=== PATIENT | male | born 1935 | race Caucasian/White ===

== ENCOUNTER 2017-01-02 12:28 | Inpatient (IN) | payer MEDICARE, BC ==
[2017-01-02] MEDS ORDERED: Sodium Chloride 0.9% 1,000 ML IV ONE (12:50)
--- NOTE | 2017-01-02 12:58 | EDM.PDOC ---
ED HISTORY OF PRESENT ILLNESS - General Chief Complaint: Respiratory Problem Stated Complaint: HEART ATTACK OR PNEUMONIA Time Seen by Provider: 01/02/17 12:48 Source of Information: Reports: Patient History Limitations: Reports: Respiratory distress - History of Present Illness INITIAL COMMENTS - FREE TEXT/NARRATIVE: This 81 yo male patient reports to the ED not feeling well. The patient reports increased shortness of breath, chest pain, and not feeling well. The patient reports he was on his "last leg", so he decided to come into the ED. The patient reports he took some Tylenol this morning. The patient does not know when his symptoms started and was very vague when answering questions. The patient reports his shortness of breath may have started 2-3 days ago. The patient reports he used some Andrey's on his chest today. Symptom Onset Date: 12/30/16 Timing/Duration: Reports: Constant, Getting worse Severity: severe Location, General: Reports: chest, generalized Quality: Reports: Ache, Dull Improves with: Reports: None Worsens with: Reports: None Associated Symptoms (General): Reports: confusion, shortness of breath, weakness Treatments TIP BANDER: Reports: Acetaminophen - Related Data Allergies/ADRs: Allergies Allergy/AdvReac Type Severity Reaction Status Date / Time ibuprofen [From Advil] Allergy Hives Verified 03/07/16 23:53 levofloxacin [From Levaquin] Allergy Rash Verified 03/07/16 23:53 naproxen sodium [From Aleve] Allergy Hives Verified 03/07/16 23:53 Home Meds: Home Meds Aspirin [Adult Low Dose Aspirin EC] 81 mg PO BEDTIME 12/17/13 [History] Dutasteride [Avodart] 0.5 mg PO DAILY 12/17/13 [History] Fluticasone/Salmeterol [Advair 250-50 Diskus] 1 puff INH BID 12/17/13 [History] Montelukast [Singulair] 10 mg PO DAILY 12/17/13 [History] Simvastatin [Zocor] 20 mg PO ACBED 12/17/13 [History] Tolterodine Tartrate [Tolterodine Tartrate ER] 4 mg PO DAILY 12/17/13 [History] Albuterol [Proair HFA] 1 - 2 puff IH ASDIRECTED PRN 10/15/14 [History] Doxazosin [Cardura] 1 tab PO BEDTIME 10/15/14 [History] Sildenafil [Viagra] 1 tab PO ASDIRECTED PRN 10/15/14 [History] Past Medical History HEENT History: Reports: Impaired vision Other HEENT History: wears glasses for reading Cardiovascular History: Reports: None Respiratory History: Reports: COPD Gastrointestinal History: Reports: None Genitourinary History: Reports: None Musculoskeletal History: Reports: Arthritis Neurological History: Reports: None Psychiatric History: Reports: None Endocrine/Metabolic History: Reports: None Hematologic History: Reports: None Immunologic History: Reports: None Oncologic (Cancer) History: Reports: None Dermatologic History: Reports: None - Past Surgical History GI Surgical History: Reports: None Social & Family History - Tobacco Use Smoking Status *Q: Former Smoker Years of Tobacco use: 10 Used Tobacco, but Quit: Yes Month Tobacco Last Used: 45yrs ago Second Hand Smoke Exposure: No - Alcohol Use Days Per Week of Alcohol Use: 0 - Recreational Drug Use Recreational Drug Use: No - Living Situation & Occupation Occupation: retired ED ROS GENERAL - Review of Systems Review Of Systems: ROS reveals no pertinent complaints other than HPI. ED EXAM, GENERAL - Physical Exam Exam: See Below Exam Limited By: No limitations General Appearance: alert, WD/WN, severe distress, thin Eye Exam: bilateral eye: EOMI, normal inspection, PERRL Ears: normal external exam, normal canal, hearing grossly normal, normal TMs Nose: normal inspection, normal mucosa, no blood Throat/Mouth: Normal inspection, Normal lips, Normal teeth, Normal gums, Normal oropharynx, Normal voice, No airway compromise Head: atraumatic, normocephalic Neck: normal inspection, supple, non-tender, full range of motion Respiratory/Chest: no respiratory distress, lungs clear, normal breath sounds, no accessory muscle use, chest non-tender Cardiovascular: normal peripheral pulses, no edema, no gallop, no JVD, no murmur , no rub, tachycardia GI/Abdominal: normal bowel sounds, soft, non tender, no organomegaly, no distention, no abnormal bruit, no mass (Male) Exam: Deferred Rectal (Males) Exam: Deferred Back Exam: normal inspection, full range of motion, NT Extremities: normal inspection, normal range of motion, non-tender, normal capillary refill, no pedal edema Neurological: alert, CN II-XII intact, confused Psychiatric: normal affect, normal mood Skin Exam: Warm, Dry, Intact, Normal color, No rash Lymphatic: no adenopathy Course - Vital Signs Last Recorded V/S: Last Vital Signs Temp 37.8 C 01/02/17 15:11 Pulse 86 01/02/17 15:11 Resp 22 H 01/02/17 15:11 BP 119/65 01/02/17 15:11 Pulse Ox 94 L 01/02/17 15:11 - Orders/Labs/Meds Orders: Active Orders 24 hr Category Date Time Status EKG Documentation Completion [RC] URGENT Care 01/02/17 12:31 Active Azithromycin [Zithromax] 500 mg Med 01/02/17 15:22 Ordered Sodium Chloride 0.9% [Normal Saline] 250 ml IV ONETIME Sodium Chloride 0.9% [Normal Saline] 1,000 ml Med 01/02/17 12:50 Active IV .BOLUS cefTRIAXone [Rocephin] 1 gm Med 01/02/17 15:22 Ordered Sodium Chloride 0.9% [Normal Saline] 50 ml IV ONETIME Medication Orders Sodium Chloride (Normal Saline) 1,000 mls @ 125 mls/hr IV .BOLUS ONE Stop: 01/02/17 20:49 Last Admin: 01/02/17 13:34 Dose: 125 mls/hr Labs: Laboratory Tests 01/02/17 01/02/17 01/02/17 Range/Units 12:45 12:45 12:45 WBC 9.5 (5.0-10.0) 10^3/uL RBC 4.86 (4.6-6.2) 10^6/uL Hgb 14.9 (14.0-18.0) g/dL Hct 43.3 (40.0-54.0) % MCV 89.1 (80-100) fL MCH 30.7 (27.0-34.0) pg MCHC 34.4 (33.0-35.0) g/dL Plt Count 125 L (150-450) 10^3/uL Neut % (Auto) 85.4 H (42.2-75.2) % Lymph % (Auto) 10.6 L (20.5-50.1) % Swain % (Auto) 4.0 (2-8) % Eos % (Auto) 0.0 L (1.0-3.0) % Baso % (Auto) 0.0 (0.0-1.0) % D-Dimer, Quantitative 1660 H (0-400) ng/mL Sodium 133 L (135-145) mmol/L Potassium 3.6 (3.6-5.0) mmol/L Chloride 102 (101-111) mmol/L Carbon Dioxide 26.0 (21.0-31.0) mmol/L Anion Gap 8.6 BUN 28 H (7-18) mg/dL Creatinine 1.0 (0.6-1.3) mg/dL Est Cr Clr Drug Dosing TNP Estimated GFR (MDRD) > 60 BUN/Creatinine Ratio 28.00 Glucose 158 H (74-105) mg/dL Calcium 8.2 L (8.4-10.2) mg/dl Total Bilirubin 1.1 H (0.2-1.0) mg/dL AST 26 (10-42) IU/L ALT 19 (10-60) IU/L Alkaline Phosphatase 62 (42-121) IU/L Troponin I 0.02 (0.00-0.02) ng/ml Total Protein 6.7 (6.7-8.2) g/dl Albumin 3.7 (3.2-5.5) g/dl Globulin 3.0 Albumin/Globulin Ratio 1.23 Meds: Medications Generic Name Dose Route Start Last Admin Trade Name Freq PRN Reason Stop Dose Admin Sodium Chloride 1,000 mls @ 125 mls/hr 01/02/17 12:50 01/02/17 13:34 Normal Saline IV 01/02/17 20:49 125 mls/hr .BOLUS ONE Administration Discontinued Medications Generic Name Dose Route Start Last Admin Trade Name Freq PRN Reason Stop Dose Admin Iopamidol 100 ml 01/02/17 14:17 Isovue-370 (76%) IVPUSH 01/02/17 14:18 ONETIME ONE Departure - Departure Time of Disposition: 15:24 Disposition: Admitted As Inpatient 68 Condition: fair Clinical Impression: Aspiration pneumonia Qualifiers: Aspiration pneumonia type: unspecified Laterality: right Lung location: lower lobe of lung Qualified Code(s): J69.0 - Pneumonitis due to inhalation of food and vomit Forms: ED Department Discharge Care Plan Goals: Discussed the history, examination, lab, EKG, x-ray and CT results with Dr. London. Dr. London accepted the patient for continued evaluation and further management. An order was placed for Rocephin and Azithromycin IV prior to transport. - My Orders Last 24 Hours: My Active Orders 01/02/17 12:31 EKG Documentation Completion [RC] URGENT 01/02/17 12:50 Sodium Chloride 0.9% [Normal Saline] 1,000 ml IV .BOLUS 01/02/17 15:22 Azithromycin [Zithromax] 500 mg Sodium Chloride 0.9% [Normal Saline] 250 ml IV ONETIME cefTRIAXone [Rocephin] 1 gm Sodium Chloride 0.9% [Normal Saline] 50 ml IV ONETIME - Assessment/Plan Last 24 Hours: My Active Orders 01/02/17 12:31 EKG Documentation Completion [RC] URGENT 01/02/17 12:50 Sodium Chloride 0.9% [Normal Saline] 1,000 ml IV .BOLUS 01/02/17 15:22 Azithromycin [Zithromax] 500 mg Sodium Chloride 0.9% [Normal Saline] 250 ml IV ONETIME cefTRIAXone [Rocephin] 1 gm Sodium Chloride 0.9% [Normal Saline] 50 ml IV ONETIME
[2017-01-02 13:12] LABS: CHLORIDE,CL 102 mmol/L (101-111); SODIUM,NA 133 mmol/L (135-145)
--- NOTE | 2017-01-02 13:15 | CR ---
CLINICAL HISTORY: 81-year-old male with shortness of breath. INTERPRETATION: Abnormal AP chest. Apparent large hiatus hernia incarcerated in the lower middle mediastinum (distal thoracic aortic an eurysm is a differential consideration and close clinical correlation requested). Asymmetric pneumonic like consolidation (infiltrate/atelectasis) right lung base. No sign of lung mass, hilar lymphadenopathy or other focal lobar consolidation. No pneumothorax or free subdiaphragmatic air. CONCLUSION: Probable hiatus hernia. Abnormal process right lung base new since 2014 exam.
[2017-01-02] MEDS ORDERED: Iopamidol 755 Mg/ML 100 ML Bottle IVPUSH ONE (14:17)
--- NOTE | 2017-01-02 15:18 | CT ---
CLINICAL HISTORY: 81-year-old 165 pound hypertensive male with shortness of breath, decreased oxygen saturation, abnormally elevated serum D dimer (greater than 1600) and patchy consolidation right odilon ng on recent chest film. Rule out pulmonary embolism/infarct. SCAN TECHNIQUE: Volume acquisition of data from an emergency unenhanced CT scan of the chest obtaine d during the intravenous administration 75 cc nonionic Isovue 370 with the patient lying supine on t Siemens multislice CT scanner [place], [place]. All data archived in the PAC system for storage, reformatting and study. INTERPRETATION: Abnormal. 1. Asymmetric dense alveolar consolidation involving right upper, with middle and right lower lobes. 2. Huge hiatus hernia (aspiration pneumonia?). 3. Normal cardiac silhouette without cephalization of vascular flow or alveolar edema. No pleural ef fusions. 4. No parenchymal lung nodule or mass lesion and no hilar or mediastinal lymphadenopathy. 5. No intraluminal filling defect or thrombus identified in the pulmonary artery circulation. No per ipheral pleural-based, wedge-shaped infarcts. No focal lobar oligemia. No dependent effusion. 6. Calcifications normal caliber thoracic aorta. No aneurysm or dissection. 7. 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 Large hiatus hernia. No pulmonary embolism.
[2017-01-02] MEDS ORDERED: Azithromycin 500 MG in Sodium Chloride 0.9% 250 ML IV ONE (15:22)
[2017-01-02] MEDS ORDERED: cefTRIAXone 1 GM in Sodium Chloride 0.9% 50 ML IV ONE (15:22)
[2017-01-02] MEDS ORDERED: Albuterol 0.083% 2.5 MG/3 ML Neb Soln NEB PRN (16:15)
[2017-01-02] MEDS ORDERED: Acetaminophen 325 MG Tab PO PRN (16:29)
[2017-01-02] MEDS ORDERED: Ondansetron 4 MG Tab.DIS PO PRN (16:29)
[2017-01-02] MEDS ORDERED: Zolpidem 5 MG Tab PO PRN (16:29)
[2017-01-02] MEDS ORDERED: Docusate Sodium 100 MG Cap PO PRN (16:29)
[2017-01-02] MEDS ORDERED: Sodium Chloride 0.9% 1,000 ML IV SCH (16:30)
--- NOTE | 2017-01-02 16:37 | PCM.HP ---
H&P History of Present Illness - General Date of Service: 01/02/17 Admit Problem/Dx: Admission Diagnosis/Problem Admission Diagnosis/Problem Pneumonia Source of Information: Patient - History of Present Illness Initial Comments - Free Text/Narative: 81-year-old gentleman with a history of COPD The patient developed nausea and small amount of vomiting overnight Today he was increasingly short of breath, lightheaded Shortness of breath was worse with activity, better with rest on presentation in the emergency room the shortness of breath was associated with hypoxemia The patient had low-grade fever in the ER The patient has a history of COPD but did not use her rescue inhaler today The patient had no significant chest pain but was complaining of back pain had mild abdominal pain but it was mostly nausea and small amount of vomiting the day before admission the patient was active working with cattle Normal apparent sick contact - Related Data Allergies/Adverse Reactions: Allergies Allergy/AdvReac Type Severity Reaction Status Date / Time ibuprofen [From Advil] Allergy Hives Verified 01/02/17 16:09 levofloxacin [From Levaquin] Allergy Rash Verified 01/02/17 16:09 naproxen sodium [From Aleve] Allergy Hives Verified 01/02/17 16:09 Home Medications: Home Meds Aspirin [Adult Low Dose Aspirin EC] 81 mg PO BEDTIME 12/17/13 [History] Dutasteride [Avodart] 0.5 mg PO DAILY 12/17/13 [History] Fluticasone/Salmeterol [Advair 250-50 Diskus] 1 puff INH BID 12/17/13 [History] Montelukast [Singulair] 10 mg PO DAILY 12/17/13 [History] Simvastatin [Zocor] 20 mg PO ACBED 12/17/13 [History] Tolterodine Tartrate [Tolterodine Tartrate ER] 4 mg PO DAILY 12/17/13 [History] Albuterol [Proair HFA] 1 - 2 puff IH ASDIRECTED PRN 10/15/14 [History] Doxazosin [Cardura] 1 tab PO BEDTIME 10/15/14 [History] Past Medical History HEENT History: Reports: Impaired vision Other HEENT History: wears glasses for reading Cardiovascular History: Reports: None Respiratory History: Reports: COPD Gastrointestinal History: Reports: None Genitourinary History: Reports: BPH Musculoskeletal History: Reports: Arthritis Neurological History: Reports: None Psychiatric History: Reports: None Endocrine/Metabolic History: Reports: None. Denies: Diabetes, type I, Diabetes , type II Hematologic History: Reports: None Immunologic History: Reports: None Oncologic (Cancer) History: Reports: None Dermatologic History: Reports: None - Past Surgical History GI Surgical History: Reports: Hernia repair/other (hiatal hernia) Social & Family History - Tobacco Use Smoking Status *Q: Former Smoker Years of Tobacco use: 10 Used Tobacco, but Quit: Yes Month Tobacco Last Used: 45yrs ago Second Hand Smoke Exposure: No - Caffeine Use Caffeine Use: Reports: Coffee, Tea - Alcohol Use Days Per Week of Alcohol Use: 0 - Recreational Drug Use Recreational Drug Use: No - Living Situation & Occupation Occupation: retired H&P Review of Systems - Review of Systems: Review Of Systems: See Below General: Reports: fever (in the emergency room) Pulmonary: Reports: Shortness of Breath Cardiovascular: Denies: chest pain, edema Gastrointestinal: Reports: Abdominal pain, Nausea. Denies: Constipation, Diarrhea Psychiatric: Reports: confusion (on presentation to the emergency room) Exam - Exam Exam: See Below - Vital Signs Vital Signs: Last Vital Signs Temp 37.9 C 01/02/17 16:04 Pulse 84 01/02/17 16:04 Resp 20 01/02/17 16:04 BP 109/59 L 01/02/17 16:04 Pulse Ox 96 01/02/17 16:04 Weight: 81.647 kg - Exam Quality Assessment: supplemental oxygen General: alert, oriented Neck: supple, trachea midline Lungs: Decreased breath sounds, Wheezing (mild) Cardiovascular: regular rate, regular rhythm Abdomen: normal bowel sounds, soft Back Exam: normal inspection, full range of motion, NT Extremities: normal inspection. No: edema Skin: warm, dry, intact Neuro Extensive - Mental Status: alert, oriented x3, normal mood/affect, normal cognition Psychiatric: alert, normal affect, normal mood - Patient Data Result Diagrams: 01/02/17 12:45 01/02/17 12:45 Imaging Impressions last 24 hrs: chest x-ray per my reading shows right-sided diffuse opacity *Q Meaningful Use (ADM) - VTE *Q VTE Criteria *Q: - Stroke *Q Stroke Criteria *Q: - AMI *Q AMI Criteria *Q: - Problem List (1) Community acquired pneumonia SNOMED Code(s): 189468536 ICD Code: J18.9 - PNEUMONIA, UNSPECIFIED ORGANISM Status: Acute Priority : High Current Visit: Yes (2) COPD exacerbation SNOMED Code(s): 498192488, 237903335 ICD Code: J44.1 - CHRONIC OBSTRUCTIVE PULMONARY DISEASE W (ACUTE) EXACERBATION Status: Acute Priority: Medium Current Visit: Yes (3) Acute hypoxemic respiratory failure SNOMED Code(s): 397360099 ICD Code: J96.01 - ACUTE RESPIRATORY FAILURE WITH HYPOXIA Status: Acute Current Visit: Yes Problem List Initiated/Reviewed/Updated: Yes Orders Last 24hrs: Active Orders 24 hr Category Date Time Status Patient Status [ADT] Routine ADT 01/02/17 16:29 Ordered Antiembolic Devices [RC] PER UNIT ROUTINE Care 01/02/17 16:31 Ordered Oxygen Therapy [RC] PRN Care 01/02/17 16:29 Ordered RT Aerosol Therapy [RC] ASDIRECTED Care 01/02/17 16:14 Ordered RT Aerosol Therapy [RC] ASDIRECTED Care 01/02/17 16:15 Ordered Up With Assistance [RC] ASDIRECTED Care 01/02/17 16:29 Ordered VTE/DVT Education [RC] PER UNIT ROUTINE Care 01/02/17 16:29 Ordered Vital Signs [RC] Q4H Care 01/02/17 16:29 Ordered Regular Diet [DIET] Diet 01/02/17 Dinner Ordered BASIC METABOLIC PANEL,BMP [CHEM] AM Lab 01/03/17 05:15 Ordered CBC WITH AUTO DIFF [HEME] AM Lab 01/03/17 05:15 Ordered CULTURE BLOOD [BC] Stat Lab 01/02/17 16:11 Ordered CULTURE BLOOD [BC] Stat Lab 01/02/17 16:11 Ordered CULTURE SPUTUM + SMEAR [RM] Routine Lab 01/02/17 16:11 Uncollected INFLUENZA A+B AG SCREEN [RM] Routine Lab 01/02/17 16:12 Uncollected TROPONIN I [CHEM] AM Lab 01/03/17 05:11 Ordered Acetaminophen [Tylenol] Med 01/02/17 16:29 Ordered 650 mg PO Q4H PRN Albuterol [Proventil Neb Soln] Med 01/02/17 16:15 Ordered 2.5 mg NEB Q2H PRN Albuterol/Ipratropium [DuoNeb 3.0-0.5 MG/3 ML] Med 01/02/17 23:00 Ordered 3 ml NEB Q8HRRT Aspirin [Halfprin] Med 01/02/17 21:00 Ordered 81 mg PO BEDTIME Azithromycin [Zithromax] 500 mg Med 01/03/17 16:15 Ordered Sodium Chloride 0.9% [Normal Saline] 250 ml IV Q24H Budesonide [Pulmicort] Med 01/02/17 18:00 Ordered 0.5 mg NEB BIDRT Docusate Sodium [Colace] Med 01/02/17 16:29 Ordered 100 mg PO BID PRN Doxazosin [Cardura] Med 01/02/17 21:00 Ordered 1 tab PO BEDTIME Dutasteride [Avodart] Med 01/03/17 09:00 Ordered 0.5 mg PO DAILY Heparin Sodium Med 01/02/17 22:00 Ordered 5,000 units SUBCUT Q8HR Montelukast [Singulair] Med 01/03/17 09:00 Ordered 10 mg PO DAILY Ondansetron [Zofran ODT] Med 01/02/17 16:29 Ordered 4 mg PO Q6H PRN Simvastatin [Zocor] Med 01/02/17 16:30 Ordered 20 mg PO ACBED Sodium Chloride 0.9% @ 75 MLS/HR(1000ml) Med 01/02/17 16:30 Ordered Sodium Chloride 0.9% [Normal Saline] 1,000 ml IV ASDIRECTED Tolterodine Tartrate [Tolterodine Tartrate ER] Med 01/03/17 09:00 Ordered 4 mg PO DAILY Zolpidem [Ambien] Med 01/02/17 16:29 Ordered 5 mg PO BEDTIME PRN cefTRIAXone [Rocephin] 1 gm Med 01/03/17 16:15 Ordered Sodium Chloride 0.9% [Normal Saline] 50 ml IV Q24H methylPREDNISolone Sod Succ [Solu-MEDROL] Med 01/02/17 16:15 Ordered 40 mg IVPUSH Q8H metroNIDAZOLE/Normal Saline [Flagyl 500 MG in NS 100 ML Med 01/02/17 16:15 Ordered ] 500 mg Premix Bag 100 bag IV Q8H Antiembolic Hose [OM.PC] Per Unit Routine Oth 01/02/17 16:30 Ordered Blood Culture x2 Reflex Set [OM.PC] Stat Oth 01/02/17 16:11 Ordered Resuscitation Status Routine Resus Stat 01/02/17 16:29 Ordered Medication Orders Albuterol (Proventil Neb Soln) 2.5 mg NEB Q2H PRN PRN Reason: sob Albuterol/Ipratropium (Duoneb 3.0-0.5 Mg/3 Ml) 3 ml NEB Q8HRRT [facility] Aspirin (Halfprin) 81 mg PO BEDTIME [facility] Budesonide (Pulmicort) 0.5 mg NEB BIDRT [facility] Doxazosin Mesylate (Cardura) 8 mg PO BEDTIME [facility] Dutasteride (Avodart) 0.5 mg PO DAILY [facility] Azithromycin 500 mg/ Sodium (Chloride) 250 mls @ 250 mls/hr IV Q24H [facility] Ceftriaxone Sodium 1 gm/ (Sodium Chloride) 50 mls @ 100 mls/hr IV Q24H [facility] Metronidazole 500 mg/ Premix 100 mls @ 100 mls/hr IV Q8HR [facility] Sodium Chloride (Normal Saline) 1,000 mls @ 75 mls/hr IV ASDIRECTED [facility] Methylprednisolone Sodium Succinate (Solu-Medrol) 40 mg IVPUSH Q8HR [facility] Montelukast Sodium (Singulair) 10 mg PO DAILY [facility] Non-Formulary Medication (Simvastatin [Zocor]) 20 mg PO ACBED [facility] Non-Formulary Medication (Tolterodine Tartrate [Tolterodine Tartrate Er]) 4 mg PO DAILY [facility] Assessment/Plan Comment:: acute hypoxemic respiratory failure Likely due to underlying COPD and pneumonia We'll supplement oxygen as needed Monitor for need Acute community-acquired pneumonia Possible aspiration pneumonia Obtain blood culture, sputum culture, influenza swab I do not think that the patient has significant sepsis on admission The patient has been started with azithromycin and Rocephin in the emergency room, will continue with this Add metronidazole for possible aspiration component Acute exacerbation of COPD Treat with Solu-Medrol, Pulmicort, scheduled DuoNeb Continue Singulair Use as needed albuterol for shortness of breath No apparent ischemic heart disease Repeat troponin in the morning Continue aspirin Prostate hypertrophy Continue home medications DVT prophylaxis will be with subcutaneous heparin Discussed with the ER provider
[2017-01-02] MEDS: methylPREDNISolone Sodium Succinate 40 MG/1 ML SDV IVPUSH SCH ×2 (16:46→21:49)
[2017-01-02] MEDS: Budesonide 0.5 MG/2 ML Neb Susp NEB SCH (19:15)
[2017-01-02] MEDS: metroNIDAZOLE/Normal Saline 500 MG in Premix Bag 100 BAG IV SCH ×2 (19:17→23:33)
[2017-01-02] MEDS: Doxazosin 2 MG Tab PO SCH (21:44)
[2017-01-02] MEDS: Simvastatin 10 MG Tab PO SCH (21:46)
[2017-01-02] MEDS: Aspirin 81 MG Tab.EC PO SCH (21:46)
[2017-01-02] MEDS: Heparin Sodium 5,000 Units/ML Vial SUBCUT SCH (21:52)
[2017-01-02] MEDS: Albuterol/Ipratropium 3.0-0.5 MG/3 ML Neb Soln NEB SCH (23:33)
[2017-01-03] MEDS: Heparin Sodium 5,000 Units/ML Vial SUBCUT SCH ×3 (06:19→21:32)
[2017-01-03] MEDS: methylPREDNISolone Sodium Succinate 40 MG/1 ML SDV IVPUSH SCH ×3 (06:19→21:32)
[2017-01-03] MEDS: metroNIDAZOLE/Normal Saline 500 MG in Premix Bag 100 BAG IV SCH ×3 (06:19→21:31)
[2017-01-03 06:54] LABS: CHLORIDE,CL 107 mmol/L (101-111); SODIUM,NA 137 mmol/L (135-145)
[2017-01-03] MEDS: Albuterol/Ipratropium 3.0-0.5 MG/3 ML Neb Soln NEB SCH ×3 (07:06→22:55)
[2017-01-03] MEDS: Budesonide 0.5 MG/2 ML Neb Susp NEB SCH ×2 (07:06→16:30)
[2017-01-03] MEDS: Montelukast 10 MG Tab PO SCH (08:28)
[2017-01-03] MEDS: Dutasteride 0.5 MG Cap PO SCH (08:28)
[2017-01-03] MEDS: Tolterodine 2 MG Cap.ER PO SCH (08:28)
[2017-01-03] MEDS ORDERED: Potassium Chloride 10 MEQ Tab.ER PO ONE (09:56)
--- NOTE | 2017-01-03 10:02 | PCM.PN ---
- General Info Date of Service: 01/03/17 Admission Dx/Problem (Free Text): Admission Diagnosis/Problem Admission Diagnosis/Problem Pneumonia Subjective Update: feeling better, Shortness of breath that started prior to admission had significantly improved He is not short of breath at rest, but has been on oxygen since admission No associated chest pain, nausea and vomiting seems resolved - Review of Systems General: Reports: Weakness. Denies: Fever Pulmonary: Denies: shortness of breath Cardiovascular: Denies: Chest Pain Gastrointestinal: Denies: Abdominal pain - Patient Data Vitals - most recent: Last Vital Signs Temp 36.4 C 01/03/17 07:00 Pulse 93 01/03/17 07:04 Resp 20 01/03/17 07:00 BP 124/74 01/03/17 07:00 Pulse Ox 94 L 01/03/17 07:00 Weight - most recent: 81.647 kg I&O - last 24 hours: Intake & Output 01/02/17 01/03/17 01/03/17 22:59 06:59 14:59 Intake Total 939 860 Balance 939 860 Lab Results last 24 hrs: Laboratory Results - last 24 hr 01/03/17 01/03/17 Range/Units 06:13 06:13 WBC 12.7 H (5.0-10.0) 10^3/uL RBC 4.07 L (4.6-6.2) 10^6/uL Hgb 12.4 L (14.0-18.0) g/dL Hct 37.0 L (40.0-54.0) % MCV 90.9 (80-100) fL MCH 30.5 (27.0-34.0) pg MCHC 33.5 (33.0-35.0) g/dL Plt Count 122 L (150-450) 10^3/uL Neut % (Auto) 93.4 H (42.2-75.2) % Lymph % (Auto) 2.7 L (20.5-50.1) % [place] % (Auto) 3.9 (2-8) % Eos % (Auto) 0.0 L (1.0-3.0) % Baso % (Auto) 0.0 (0.0-1.0) % Sodium 137 (135-145) mmol/L Potassium 3.5 L (3.6-5.0) mmol/L Chloride 107 (101-111) mmol/L Carbon Dioxide 25.0 (21.0-31.0) mmol/L Anion Gap 8.5 BUN 24 H (7-18) mg/dL Creatinine 0.8 (0.6-1.3) mg/dL Est Cr Clr Drug Dosing 72.44 mL/min Estimated GFR (MDRD) > 60 Glucose 157 H (74-105) mg/dL Calcium 7.8 L (8.4-10.2) mg/dl Troponin I < 0.02 (0.00-0.02) ng/ml Filippo Results last 24 hrs: Microbiology 01/02/17 19:00 Gram Stain - Final Sputum - Expectorated 01/02/17 18:36 Influenza Type A Antigen Screen - Final Nasal, Left NEGATIVE INFLUENZA A VIRUS AG Influenza Type B Antigen Screen - Final NEGATIVE INFLUENZA B VIRUS AG Med Orders - Current: Current Medications Acetaminophen (Tylenol) 650 mg PO Q4H PRN PRN Reason: Pain (Mild 1-3)/fever Albuterol (Proventil Neb Soln) 2.5 mg NEB Q2H PRN PRN Reason: sob Albuterol/Ipratropium (Duoneb 3.0-0.5 Mg/3 Ml) 3 ml NEB Q8HRRT [facility] Last Admin: 01/03/17 07:06 Dose: 3 ml Aspirin (Halfprin) 81 mg PO BEDTIME [facility] Last Admin: 01/02/17 21:46 Dose: 81 mg Budesonide (Pulmicort) 0.5 mg NEB BIDRT [facility] Last Admin: 01/03/17 07:06 Dose: 0.5 mg Docusate Sodium (Colace) 100 mg PO BID PRN PRN Reason: Constipation Doxazosin Mesylate (Cardura) 8 mg PO BEDTIME [facility] Last Admin: 01/02/17 21:44 Dose: 8 mg Dutasteride (Avodart) 0.5 mg PO DAILY [facility] Last Admin: 01/03/17 08:28 Dose: 0.5 mg Heparin Sodium (Porcine) (Heparin Sodium) 5,000 units SUBCUT Q8HR [facility] Last Admin: 01/03/17 06:19 Dose: 5,000 units Azithromycin 500 mg/ Sodium (Chloride) 250 mls @ 250 mls/hr IV Q24H [facility] Ceftriaxone Sodium 1 gm/ (Sodium Chloride) 50 mls @ 100 mls/hr IV Q24H [facility] Metronidazole 500 mg/ Premix 100 mls @ 100 mls/hr IV Q8HR [facility] Last Admin: 01/03/17 06:19 Dose: 100 mls/hr Sodium Chloride (Normal Saline) 1,000 mls @ 75 mls/hr IV ASDIRECTED [facility] Last Admin: 01/02/17 16:39 Dose: 75 mls/hr Methylprednisolone Sodium Succinate (Solu-Medrol) 40 mg IVPUSH Q8HR [facility] Last Admin: 01/03/17 06:19 Dose: 40 mg Montelukast Sodium (Singulair) 10 mg PO DAILY [facility] Last Admin: 01/03/17 08:28 Dose: 10 mg Ondansetron HCl (Zofran Odt) 4 mg PO Q6H PRN PRN Reason: nausea, able to take PO Potassium Chloride (Klor-Con 10) 20 meq PO ONETIME ONE Stop: 01/03/17 09:57 Simvastatin (Zocor) 20 mg PO BEDTIME [facility] Last Admin: 01/02/17 21:46 Dose: 20 mg Tolterodine Tartrate (Detrol La 24 Hr) 4 mg PO DAILY [facility] Last Admin: 01/03/17 08:28 Dose: 4 mg Zolpidem Tartrate (Ambien) 5 mg PO BEDTIME PRN PRN Reason: Sleep Discontinued Medications Sodium Chloride (Normal Saline) 1,000 mls @ 125 mls/hr IV .BOLUS ONE Stop: 01/02/17 20:49 Last Infusion: 01/02/17 16:04 Dose: 125 mls/hr Azithromycin 500 mg/ Sodium (Chloride) 250 mls @ 250 mls/hr IV ONETIME ONE Stop: 01/02/17 16:21 Last Admin: 01/02/17 16:48 Dose: 250 mls/hr Ceftriaxone Sodium 1 gm/ (Sodium Chloride) 50 mls @ 100 mls/hr IV ONETIME ONE Stop: 01/02/17 15:51 Last Admin: 01/02/17 15:30 Dose: 100 mls/hr Iopamidol (Isovue-370 (76%)) 100 ml IVPUSH ONETIME ONE Stop: 01/02/17 14:18 Last Admin: 01/02/17 14:17 Dose: 100 ml - Exam Quality Assessment: supplemental oxygen General: alert, oriented Neck: supple Lungs: Rhonchi (right-sided) Cardiovascular: Regular Rate, Regular Rhythm Abdomen: bowel sounds present, soft, no tenderness, no distension Back Exam: normal inspection, full range of motion Extremities: no edema Skin: warm, dry, intact Neurological: no new focal deficit Psy/Mental Status: alert, normal affect, normal mood - Problem List & Annotations (1) Community acquired pneumonia SNOMED Code(s): 173628305 Code(s): J18.9 - PNEUMONIA, UNSPECIFIED ORGANISM Status: Acute Priority: High Current Visit: Yes (2) COPD exacerbation SNOMED Code(s): 447270752, 531822362 Code(s): J44.1 - CHRONIC OBSTRUCTIVE PULMONARY DISEASE W (ACUTE) EXACERBATION Status: Acute Priority: Medium Current Visit: Yes (3) Acute hypoxemic respiratory failure SNOMED Code(s): 144472325 Code(s): J96.01 - ACUTE RESPIRATORY FAILURE WITH HYPOXIA Status: Acute Current Visit: Yes - Problem List Review Problem List Initiated/Reviewed/Updated: Yes - My Orders Last 24 Hours: My Active Orders 01/03/17 09:56 Potassium Chloride [Klor-Con 10] 20 meq PO ONETIME ONE - Plan Plan:: acute hypoxemic respiratory failure Likely due to underlying COPD and pneumonia We'll supplement oxygen as needed Monitor for oxygen need Acute community-acquired pneumonia Possible aspiration pneumonia blood culture: pending Sputum culture: pending Treat with azithromycin and Rocephin Added metronidazole for possible aspiration component Acute exacerbation of COPD Treat with Solu-Medrol, Pulmicort, scheduled DuoNeb Continue Singulair Use as needed albuterol for shortness of breath leukocytosis likely relates to the steroids Prostate hypertrophy Continue home medications blood sugars were noted Likely glucose intolerance exacerbated by the steroids Recheck fasting sugar in the morning DVT prophylaxis will be with subcutaneous heparin
[2017-01-03] MEDS: cefTRIAXone 1 GM in Sodium Chloride 0.9% 50 ML IV SCH (15:21)
[2017-01-03] MEDS: Azithromycin 500 MG in Sodium Chloride 0.9% 250 ML IV SCH (15:55)
--- NOTE | 2017-01-03 16:09 | EKG ---
01/02/2017 - JANINE BEARD - EKG per my reading shows sinus rhythm at a rate of 117 with right bundle-branch block. [facility] /[id number]
[2017-01-03] MEDS: Doxazosin 2 MG Tab PO SCH (21:29)
[2017-01-03] MEDS: Aspirin 81 MG Tab.EC PO SCH (21:30)
[2017-01-03] MEDS: Simvastatin 10 MG Tab PO SCH (21:30)
[2017-01-04] MEDS: Heparin Sodium 5,000 Units/ML Vial SUBCUT SCH ×3 (05:51→21:33)
[2017-01-04] MEDS: metroNIDAZOLE/Normal Saline 500 MG in Premix Bag 100 BAG IV SCH ×2 (05:52→15:20)
[2017-01-04] MEDS: methylPREDNISolone Sodium Succinate 40 MG/1 ML SDV IVPUSH SCH (05:52)
[2017-01-04 06:46] LABS: CHLORIDE,CL 107 mmol/L (101-111); SODIUM,NA 137 mmol/L (135-145)
[2017-01-04] MEDS: Budesonide 0.5 MG/2 ML Neb Susp NEB SCH ×2 (07:23→16:23)
[2017-01-04] MEDS: Albuterol/Ipratropium 3.0-0.5 MG/3 ML Neb Soln NEB SCH ×3 (07:23→22:42)
[2017-01-04] MEDS: Montelukast 10 MG Tab PO SCH (09:47)
[2017-01-04] MEDS: Tolterodine 2 MG Cap.ER PO SCH (09:47)
[2017-01-04] MEDS: Dutasteride 0.5 MG Cap PO SCH (09:47)
--- NOTE | 2017-01-04 13:03 | PN ---
DATE: 01/04/2017 HISTORY OF PRESENT ILLNESS: Mr. Jam Fuentes is a 81-year-old male with a medical history significant for chronic obstructive pulmonary disease, hypertension, hyperlipidemia, was admitted to the hospital with complaints of increasing shortness of breath and was noted to be in acute hypoxic respiratory failure, acute COPD exacerbation, and with pneumonia. For the past 24 hours, the patient continues to have mild shortness of breath, aggravated on exertion, relieved with rest, requiring supplemental oxygen, getting hypoxic on room air. He was saturating down to 80% on room air. Denies any chest pains. No abdominal pain. No nausea. No vomiting. No diarrhea. REVIEW OF SYSTEMS: Cardiovascular, respiratory, gastrointestinal, neurology, constitutional were all evaluated. PHYSICAL EXAMINATION: Vital Signs: Temperature of 98.4, pulse of 84, blood pressure 116/68, respiratory rate of 18, saturating at 92% on 1.5 L of oxygen. General Appearance: The patient is well oriented to time, place, and person. Follows commands spontaneously. Cardiovascular: S1, S2 heard with normal intensity. No gallops. Respiratory: Clear to auscultation bilaterally. No wheeze. Mild crepitations at the bases. Abdomen: Soft. Bowel sounds positive. Nontender. No rigidity. Extremities: No edema in bilateral lower extremities. Skin: No acute rash noted. Psychiatry: Normal mood. MEDICATIONS: 1. Tylenol 650 mg every 4 hours as needed. 2. Albuterol 2.5 nebulizer every 2 hours as needed. 3. DuoNeb 3 mL nebulizer every 8 hours. 4. Aspirin 81 mg daily. 5. Zithromax 250 IV daily. 6. Pulmicort 0.5 mg nebulizer twice daily. 7. Ceftriaxone daily. 8. Docusate sodium 100 mg twice a day. 9. Cardura 8 mg at bedtime. 10.Avodart 0.5 mg daily. 11.Heparin 5000 subcutaneous q.8 hourly. 12.Methylprednisolone 40 mg IV q.8 hourly. 13.Metronidazole IV q.8 hourly. 14.Montelukast 10 mg daily. 15.Zofran 4 mg every 6 hours as needed for nausea. 16.Zocor 20 mg daily. 17.Detrol 4 mg daily. 18.Ambien 5 mg at bedtime as needed. LABORATORY DATA: WBC 12.2, hemoglobin 12.1, hematocrit 35.9, platelet count 130. Sodium 137, potassium 3.8, chloride 107, bicarb 24, BUN 28, creatinine 0.9. Glucose 133. Troponin 0.02. ASSESSMENT: 1. Acute chronic obstructive pulmonary disease exacerbation. 2. Acute hypoxic respiratory failure. 3. Pneumonia. PLAN: 1. Acute COPD exacerbation. The patient's COPD seems to be improving on current regimen with DuoNeb and Pulmicort nebulizer and IV methylprednisone. We will gradually taper to oral prednisone at this time. Closely monitor. 2. Acute hypoxic respiratory failure. The patient continues to be hypoxic on room air. He saturating down to 80% to 85% on room air. He is requiring 1.5 L of oxygen. We will hold the discharge today. We will have him on incentive spirometer, flutter valve. We will continue with the nebulizer treatments and antibiotics, and titrate down the prednisone. We will see how he does in the next 24 hours. If he still continues to require oxygen, then he might benefit from home oxygen. 3. Pneumonia. This seems to be community-acquired pneumonia. He is currently on IV antibiotics, continue the same. So far, his cultures remain negative. 4. DVT prophylaxis. Continue with heparin 5000 subcutaneous q.8 hourly for DVT prophylaxis. 5. Possible discharge in a.m. 6. Discussed with Dr. London regarding the plan of care. [facility] /[id number]
[2017-01-04] MEDS: Sodium Chloride 0.9% 10 ML Syringe FLUSH PRN ×3 (15:20→22:38)
[2017-01-04] MEDS: cefTRIAXone 1 GM in Sodium Chloride 0.9% 50 ML IV SCH (16:23)
[2017-01-04] MEDS: Azithromycin 500 MG in Sodium Chloride 0.9% 250 ML IV SCH (16:54)
[2017-01-04] MEDS: Doxazosin 2 MG Tab PO SCH (21:29)
[2017-01-04] MEDS: Aspirin 81 MG Tab.EC PO SCH (21:31)
[2017-01-04] MEDS: Simvastatin 10 MG Tab PO SCH (21:32)
[2017-01-04] MEDS: metroNIDAZOLE/Normal Saline 500 MG in Premix Bag 1 BAG IV SCH (21:34)
[2017-01-05] MEDS: metroNIDAZOLE/Normal Saline 500 MG in Premix Bag 1 BAG IV SCH ×2 (05:19→13:07)
[2017-01-05] MEDS: Heparin Sodium 5,000 Units/ML Vial SUBCUT SCH ×2 (05:20→13:07)
[2017-01-05] MEDS: Albuterol/Ipratropium 3.0-0.5 MG/3 ML Neb Soln NEB SCH (07:41)
[2017-01-05] MEDS: Budesonide 0.5 MG/2 ML Neb Susp NEB SCH (07:41)
[2017-01-05] MEDS ORDERED: predniSONE 20 MG Tab PO SCH (08:00)
[2017-01-05] MEDS: Dutasteride 0.5 MG Cap PO SCH (08:52)
[2017-01-05] MEDS: Montelukast 10 MG Tab PO SCH (08:53)
[2017-01-05] MEDS: Tolterodine 2 MG Cap.ER PO SCH (08:53)
[2017-01-05 10:13] VITALS: BP 129/73
--- NOTE | 2017-01-06 04:23 | DISCH ---
ADMITTING DIAGNOSES: 1. Acute chronic obstructive pulmonary disease exacerbation. 2. Acute hypoxic respiratory failure. 3. Community-acquired pneumonia. DISCHARGE DIAGNOSES: 1. Pneumonia, treated well with IV antibiotics, changed to oral antibiotic at the time of discharge. 2. Acute hypoxic respiratory failure, resolved. The patient is able to saturate well on room air between 93% to 95%. 3. Acute chronic obstructive pulmonary exacerbation, resolved. 4. History of benign prostatic hypertrophy. HISTORY OF PRESENTING ILLNESS: Mr. Jam Fuentes is a 81-year-old male with medical history significant for chronic obstructive pulmonary disease, who was admitted to the hospital with increasing shortness of breath and was noted to be in COPD exacerbation, acute hypoxic respiratory failure, requiring oxygen, and was noted to have COPD exacerbation. The patient was admitted and was started on nebulizer treatment, IV methylprednisone, antibiotics, after which his symptoms got resolved. The patient was encouraged to use incentive spirometer and flutter valve for better pulmonary toileting on this admission. He remained hemodynamically stable. He is able to saturate well on room air at the time of discharge. He is discharged home in stable condition. He is advised to follow with his primary care physician in next 1 week of time. DISCHARGE MEDICATIONS: Include; 1. Albuterol 2 puffs inhalation every 6 hours as needed for wheezing. 2. Aspirin 81 mg daily. 3. Zithromax 500 mg daily for next 5 days. 4. Doxazosin 8 mg at bedtime. 5. Avodart 0.5 mg daily. 6. Advair inhalation twice a day, magnesium 2-4 tablets oral 4 times daily as needed for hard bone. 7. Gaviscon. 8. Montelukast 10 mg at bedtime. 9. Prednisone tapered dose 20 mg 3 days, 10 mg 3 days, and then 5 mg for 3 days. 10.Simvastatin 20 mg at bedtime. 11.Tolterodine tartrate 4 mg daily. PHYSICAL EXAMINATION: Vital Signs: On the day of discharge vitals; temperature of 97.8, pulse of 86, blood pressure 129/73, respiratory rate of 18, and saturating at 93% on room air. General Appearance: The patient is well oriented to time, place, and person. Follows commands spontaneously. Cardiovascular System: S1 and S2 are heard with normal intensity. No gallops. Respiratory: Clear to auscultation bilaterally. No wheeze. No crepitations. Abdomen: Soft. Bowel sounds positive. Nontender. No rigidity. Extremities: No edema in bilateral lower extremities. Neurologic: No gross focal neurological deficits. CONDITION ON ADMISSION: Poor. CONDITION ON DISCHARGE: Stable. ACTIVITY: As tolerated. DIET: Cardiac healthy diet. FOLLOWUP: With primary care physician in next 1 week of time. [facility] /[id number]
== END 2017-01-05 14:34 | disposition home or self-care (01) | DRG 189 ==
LOC: DL.ED 12:28 → UNDOADMIN 15:38 → DL.MS 15:38
PROVIDERS: ADMIT Internal Medicine; ATTEND Internal Medicine
DX: J69.0 Pneumonitis due to inhalation of food and vomit (principal); J44.9 Chronic obstructive pulmonary disease, unspecified; J96.01 Acute respiratory failure with hypoxia; J18.9 Pneumonia, unspecified organism; J44.0 Chronic obstructive pulmonary disease with (acute) lower respiratory infection; J44.1 Chronic obstructive pulmonary disease with (acute) exacerbation; Z87.891 Personal history of nicotine dependence; N40.0 Benign prostatic hyperplasia without lower urinary tract symptoms; Z79.899 Other long term (current) drug therapy; Z88.1 Allergy status to other antibiotic agents; Z88.6 Allergy status to analgesic agent; I10 Essential (primary) hypertension; E78.5 Hyperlipidemia, unspecified; Z79.82 Long term (current) use of aspirin; M19.90 Unspecified osteoarthritis, unspecified site
CPT/HCPCS: 36415; 71010; 71260; 80053; 84484; 85025; 85379; 87040 ×2; 93005; 93010; 99285 ×2; J0696; J7030; J7050; Q9967 ×2; 80048; 87070; 87205; 87804; 94640; 94667; A9270-GY; J0456; J1644; J2920

== ENCOUNTER 2018-01-07 06:06 | Day surgery (SDC) | payer MEDICARE, BC ==
[~2018-01-07 06:06] MED LIST: Dextrose 5%-0.45% NaCl 1,000 ML IV SCH; Sodium Chloride 0.9% 10 ML Syringe FLUSH PRN
[2018-01-07] MEDS ORDERED: Midazolam 1 MG/ML 2 ML SDV IV ONE ×2 (06:07→07:08)
[2018-01-07] MEDS ORDERED: fentaNYL 100 MCG/2 ML SDV IV ONE ×3 (06:07→07:07)
[2018-01-07] MEDS ORDERED: Midazolam 1 MG/ML 2 ML SDV ONE (06:15)
[2018-01-07] MEDS ORDERED: fentaNYL 100 MCG/2 ML SDV ONE (06:16)
--- NOTE | 2018-01-07 08:20 | OR ---
DATE: 01/07/2018 PROCEDURE PERFORMED: Esophagogastroduodenoscopy and multiple pinch biopsies. INSTRUMENT USED: GIF-Q180 Olympus video panendoscope. PREMEDICATIONS: No oral topical anesthesia used. Fentanyl 100 mcg intravenous and Versed 1 mg intravenous. Nasal O2 cannula. The procedure was done under pulse oximetry, BP recording, and environmental monitoring specialist. INDICATION: The patient with previous hiatal hernia surgery with longstanding heartburn, persistent in nature, unexplained, and not responsive to medical measures, on PPI. Esophagogastroduodenoscopy is performed for detection of any active erosive lesions, malignancy and/or Dowell's esophagus also under consideration, H. pylori status to be determined, endoscopic hemostasis therapy if needed. DESCRIPTION OF PROCEDURE: The scope was passed with ease. Adequate visualization of the esophagus was made from proximal to distal areas. No upper esophageal lesions identified. No distal esophageal stricture. No uphill or downhill esophageal varices. No Alda-Felix tear. No evidence of erosive esophagitis by [place] criteria. No esophageal polyp or tumor mass identified. Z-line was seen at around 39 cm distal to the oral verge. Surgical deformity was noted related to previous hiatal hernia surgery. No proximal gastric varices noted. Gastric fundus examination by retroflexion showed no malignant lesions. No gastric ulcer, malignant mass, or vascular ectasia identified. Duodenal bulb showed no ulcer. Visualized second part of the duodenum was unremarkable. Multiple pinch biopsies were taken from the gastric antrum and proximal body and sent for PyloriTek test for H. pylori, and if negative in an hour, tissue was to be sent for histopathology. No bleeding was noted from any of the visualized areas at the completion of examination. IMPRESSION: Status post hiatal hernia surgery. The patient tolerated the procedure well. [facility] /[id number]
[2018-01-07 09:39] VITALS: BP 144/74
== END 2018-01-07 09:23 | disposition home or self-care (01) ==
LOC: DL.ENDO 06:06
PROVIDERS: ATTEND Internal Medicine Gastroenterology
DX: K31.89 Other diseases of stomach and duodenum (principal); R12 Heartburn; I10 Essential (primary) hypertension; J44.9 Chronic obstructive pulmonary disease, unspecified; Z88.1 Allergy status to other antibiotic agents; Z88.8 Allergy status to other drugs, medicaments and biological substances
CPT/HCPCS: 43239; 87077; J7042; 88305; J2250; J3010

== ENCOUNTER 2018-03-30 21:03 | Emergency (ER) | payer MEDICARE, BC ==
[2018-03-30 21:08] VITALS: BP 150/101
[2018-03-30] MEDS ORDERED: Clindamycin HCl 150 MG Cap PO ONE (21:11)
--- NOTE | 2018-03-30 21:17 | EDM.PDOC ---
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 - Related Data Allergies Allergy/AdvReac Type Severity Reaction Status Date / Time ibuprofen [From Advil] Allergy Hives Verified 01/07/18 06:21 levofloxacin [From Levaquin] Allergy Rash Verified 01/07/18 06:21 naproxen sodium [From Aleve] Allergy Hives Verified 01/07/18 06:21 Home Meds: Home Meds Aspirin [Adult Low Dose Aspirin EC] 81 mg PO BEDTIME 12/17/13 [History] Dutasteride [Avodart] 0.5 mg PO DAILY 12/17/13 [History] Fluticasone/Salmeterol [Advair 250-50] 1 puff INH BID 12/17/13 [History] Montelukast [Singulair] 10 mg PO BEDTIME 12/17/13 [History] Simvastatin [Zocor] 20 mg PO BEDTIME 12/17/13 [History] Tolterodine Tartrate [Tolterodine Tartrate ER] 4 mg PO DAILY 12/17/13 [History] Doxazosin [Cardura] 8 mg PO BEDTIME 10/15/14 [History] Albuterol [Ventolin HFA] 2 puff INH BID PRN 01/02/17 [History] Pantoprazole [ProTONIX] 40 mg PO DAILY 01/03/18 [History] predniSONE 20 mg PO BID 01/03/18 [History] Azithromycin [Zithromax] 1 tab PO ASDIRECTED 01/07/18 [History] Doxycycline [Vibramycin] 100 mg PO BID 01/07/18 [History] Past Medical History HEENT History: Reports: Impaired Vision, Other (See Below) Other HEENT History: wears glasses for reading. UPPER DENTURE PLATE Cardiovascular History: Reports: None Other Cardiovascular History: ABDOMINAL AORTIC ANEURYSM Respiratory History: Reports: COPD, SOB, Other (See Below) Other Respiratory History: HX OF 'SPOT' ON LUNG, FOUND ON CT SCAN 11/2017 Gastrointestinal History: Reports: None Other Gastrointestinal History: S/P COLONIC TUBULAR ADENOMA Genitourinary History: Reports: BPH Musculoskeletal History: Reports: Arthritis Neurological History: Reports: None Psychiatric History: Reports: None Other Psychiatric History: S/P TOBACCO HABITUATION Endocrine/Metabolic History: Reports: None Hematologic History: Reports: None Immunologic History: Reports: None Oncologic (Cancer) History: Reports: None Dermatologic History: Reports: None - Infectious Disease History Infectious Disease History: Reports: None - Past Surgical History GI Surgical History: Reports: Hernia Repair/Other Social & Family History - Family History Family Medical History: Noncontributory - Caffeine Use Caffeine Use: Reports: Coffee, Tea Caffeine Use Comment: 16. OZ - Living Situation & Occupation Occupation: Retired ED ROS GENERAL - Review of Systems Review Of Systems: ROS reveals no pertinent complaints other than HPI. ED EXAM, SKIN/RASH Exam: See Below Exam Limited By: No Limitations General Appearance: Alert, WD/WN, No Apparent Distress Ears: Hearing Grossly Normal Throat/Mouth: Normal Voice, No Airway Compromise Head: Atraumatic Neck: Non-Tender, Full Range of Motion Respiratory/Chest: No Respiratory Distress Cardiovascular: Regular Rate, Rhythm GI/Abdominal: Soft, Non-Tender Extremities: Other (left arm spfl skin tears without active bleeding, normal ROM , NV nwl,) Neurological: Alert, Oriented, Normal Cognition, Normal Gait, No Motor/Sensory Deficits Psychiatric: Normal Affect, Normal Mood Skin: Warm, Dry, Normal Color Location, Skin: Upper Extremity, Left Lymphatic: No Adenopathy Course - Vital Signs Last Recorded V/S: Last Vital Signs Temp 37.1 C 03/30/18 21:07 Pulse 82 03/30/18 21:07 Resp 16 03/30/18 21:07 BP 150/101 H 03/30/18 21:07 Pulse Ox 95 03/30/18 21:07 - Orders/Labs/Meds Meds: Medications Discontinued Medications Generic Name Dose Route Start Last Admin Trade Name Freq PRN Reason Stop Dose Admin Clindamycin HCl 300 mg 03/30/18 21:11 03/30/18 21:17 Cleocin PO 03/30/18 21:12 300 mg ONETIME ONE Administration Departure - Departure Time of Disposition: 21:20 Disposition: Home, Self-Care 01 Condition: Good Clinical Impression: Skin tear - Discharge Information Instructions: Skin Tear Care, [id number] Referrals: [place],Ash Lorri, [employer] [Primary Care Provider] - Forms: ED Department Discharge Additional Instructions: 1) keep wound clean dry covered 2) recheck if looks infected rx given; clindamycin 150mg qid x 40
== END 2018-03-30 21:20 | disposition home or self-care (01) ==
LOC: DL.ED 21:03
DX: S41.112A Laceration without foreign body of left upper arm, initial encounter (principal); Z88.6 Allergy status to analgesic agent; Z88.1 Allergy status to other antibiotic agents; Z79.82 Long term (current) use of aspirin; Z79.899 Other long term (current) drug therapy; W01.0XXA Fall on same level from slipping, tripping and stumbling without subsequent striking against object, initial encounter; Y92.79 Other farm location as the place of occurrence of the external cause; Y99.0 Civilian activity done for income or pay
CPT/HCPCS: 99282; 99283; A9270

== ENCOUNTER 2020-07-16 17:54 | Observation (INO) | payer MEDICARE, BC ==
[2020-07-16] MEDS ORDERED: Ondansetron 4 MG/2 ML SDV IVPUSH PRN (19:29)
[2020-07-16] MEDS ORDERED: Zolpidem 5 MG Tab PO PRN (19:29)
[2020-07-16] MEDS ORDERED: Albuterol 6.7 GM Inhaler INH PRN ×2 (19:34)
--- NOTE | 2020-07-16 19:37 | PCM.HP ---
H&P History of Present Illness - General Date of Service: 07/16/20 Admit Problem/Dx: Admission Diagnosis/Problem Admission Diagnosis/Problem Abnormal electrocardiogram Source of Information: Patient History Limitations: Reports: No Limitations - History of Present Illness Initial Comments - Free Text/Narative: Patient is an 85 year-old male with a medical history of dyslipidemia, COPD, BPH, HTN, AAA, GERD who presented from clinic with complains of cough and shortness of breath. Patient reports that he was in his usual state of health until yesterday when he developed a dry cough and shortness of breath with activity. He started to feel generalized weakness today and decided to present to clinic. Vital signs were stable, labs showed potassium of 3.4, however, EKG showed RBBB, LAFB and questionable ST depressions. Troponin was negative. Patient was referred for observation. However, upon presentation here, he was tested for COVID-19 and found positive. He denies fever or chest pain. CXR had no acute findings. - Related Data Allergies/Adverse Reactions: Allergies Allergy/AdvReac Type Severity Reaction Status Date / Time ibuprofen [From Advil] Allergy Hives Verified 01/07/18 06:21 levofloxacin [From Levaquin] Allergy Rash Verified 01/07/18 06:21 naproxen sodium [From Aleve] Allergy Hives Verified 01/07/18 06:21 Home Medications: Home Meds Aspirin [Adult Low Dose Aspirin EC] 81 mg PO BEDTIME 12/17/13 [History] Dutasteride [Avodart] 0.5 mg PO DAILY 12/17/13 [History] Fluticasone/Salmeterol [Advair 250-50] 1 puff INH BID 12/17/13 [History] Montelukast [Singulair] 10 mg PO BEDTIME 12/17/13 [History] Simvastatin [Zocor] 20 mg PO BEDTIME 12/17/13 [History] Doxazosin [Cardura] 8 mg PO BEDTIME 10/15/14 [History] Albuterol [Ventolin HFA] 2 puff INH Q6H PRN 01/02/17 [History] Pantoprazole [ProTONIX] 40 mg PO BID 01/03/18 [History] Albuterol [Take Home: Albuterol 18 GM, 1 INH Pack] 1 puff INH QID PRN 07/16/20 [History] Mirabegron [Myrbetriq] 25 mg PO DAILY 07/16/20 [History] Potassium Chloride 20 meq PO DAILY 07/16/20 [History] hydroCHLOROthiazide [Hydrochlorothiazide] 25 mg PO DAILY 07/16/20 [History] Past Medical History HEENT History: Reports: Impaired Vision, Other (See Below) Other HEENT History: wears glasses for reading. UPPER DENTURE PLATE Cardiovascular History: Reports: None Other Cardiovascular History: ABDOMINAL AORTIC ANEURYSM Respiratory History: Reports: COPD, SOB, Other (See Below) Other Respiratory History: HX OF 'SPOT' ON LUNG, FOUND ON CT SCAN 11/2017 Gastrointestinal History: Reports: None Other Gastrointestinal History: S/P COLONIC TUBULAR ADENOMA Genitourinary History: Reports: BPH Musculoskeletal History: Reports: Arthritis Neurological History: Reports: None Psychiatric History: Reports: None Other Psychiatric History: S/P TOBACCO HABITUATION Endocrine/Metabolic History: Reports: None Hematologic History: Reports: None Immunologic History: Reports: None Oncologic (Cancer) History: Reports: None Dermatologic History: Reports: None - Infectious Disease History Infectious Disease History: Reports: None - Past Surgical History GI Surgical History: Reports: Hernia Repair/Other Social & Family History - Family History Family Medical History: Noncontributory - Caffeine Use Caffeine Use: Reports: Coffee, Tea Caffeine Use Comment: 16. OZ - Living Situation & Occupation Occupation: Retired H&P Review of Systems - Review of Systems: Review Of Systems: See Below General: Reports: Weakness HEENT: Reports: No Symptoms Pulmonary: Reports: Shortness of Breath, Cough Cardiovascular: Reports: No Symptoms Gastrointestinal: Reports: No Symptoms Genitourinary: Reports: No Symptoms Musculoskeletal: Reports: No Symptoms Skin: Reports: No Symptoms Psychiatric: Reports: No Symptoms Neurological: Reports: No Symptoms Hematologic/Lymphatic: Reports: No Symptoms Immunologic: Reports: No Symptoms Exam - Exam Exam: See Below - Exam General: Alert HEENT: PERRLA, Hearing Intact, Mucosa Moist & [place], Nares Patent, Normal Nasal Septum, Posterior Pharynx Clear, Conjunctiva Clear, EOMI, EACs Clear, TMs Clear Neck: Supple, Trachea Midline, 2 Lungs: Clear to Auscultation, Normal Respiratory Effort Cardiovascular: Regular Rate, Regular Rhythm GI/Abdominal Exam: Normal Bowel Sounds, Soft, Non-Tender, No Organomegaly, No Distention, No Abnormal Bruit, No Mass, Pelvis Stable Back Exam: Normal Inspection, Full Range of Motion, NT Extremities: Normal Inspection, Normal Range of Motion, Non-Tender, No Pedal Edema, Normal Capillary Refill Skin: Warm, Dry, Intact Neurological: Cranial Nerves Intact, Reflexes Equal Bilateral Neuro Extensive - Mental Status: Alert, Oriented x3, Normal Mood/Affect, Normal Cognition Neuro Extensive - Motor, Sensory, Reflexes: CN II-XII Intact, Normal Gait, Normal Reflexes Psychiatric: Alert, Normal Affect, Normal Mood - Patient Data Lab Results Last 24 hrs: Laboratory Results - last 24 hr 07/16/20 Range/Units 18:15 SARS CoV-2 RNA Rapid NISH Positive H (NEGATIVE) Problem List Initiated/Reviewed/Updated: Yes Orders Last 24hrs: Active Orders 24 hr Category Date Time Status Patient Status [ADT] Routine ADT 07/16/20 18:05 Active Antiembolic Devices [RC] PER UNIT ROUTINE Care 07/16/20 19:34 Ordered Cardiac Monitoring [RC] CONTINUOUS Care 07/16/20 19:29 Ordered Incentive Spirometry [RT Incentive Spirometry] [RC] Care 07/16/20 19:36 Ordered Q1HWA Oxygen Therapy [RC] PRN Care 07/16/20 19:29 Ordered RT Post Treatment Assessment [RC] Click to Edit Care 07/16/20 19:35 Ordered RT Pre-Treatment Assessment [RC] Click to Edit Care 07/16/20 19:35 Ordered Up ad Aditi [RC] ASDIRECTED Care 07/16/20 19:29 Ordered VTE/DVT Education [RC] PER UNIT ROUTINE Care 07/16/20 19:29 Ordered Vital Signs [RC] Q4H Care 07/16/20 19:29 Ordered Regular Diet [DIET] Diet 07/16/20 Breakfast Ordered Acetaminophen [TylenoL] Med 07/16/20 19:29 Ordered 650 mg PO Q4H PRN Albuterol [Proventil HFA] Med 07/16/20 19:34 Ordered 1 puff INH QID PRN Albuterol [Proventil HFA] Med 07/16/20 19:34 Ordered 2 puff INH Q6H PRN Aspirin [Halfprin] Med 07/16/20 21:00 Ordered 81 mg PO BEDTIME Doxazosin [Cardura] Med 07/16/20 21:00 Ordered 8 mg PO BEDTIME Dutasteride [Avodart] Med 07/17/20 09:00 Ordered 0.5 mg PO DAILY Enoxaparin [Lovenox] Med 07/17/20 09:00 Ordered 40 mg SUBCUT DAILY Fluticasone/Salmeterol Med 07/16/20 21:00 Ordered 1 puff INH BID Montelukast [Singulair] Med 07/16/20 21:00 Ordered 10 mg PO BEDTIME Ondansetron [Zofran] Med 07/16/20 19:29 Ordered 4 mg IVPUSH Q4H PRN Pantoprazole [ProTONIX] Med 07/16/20 21:00 Ordered 40 mg PO BID Potassium Chloride [Klor-Con 10] Med 07/16/20 19:35 Once 40 meq PO ONETIME ONE Potassium Chloride [Potassium Chloride] Med 07/17/20 09:00 Ordered 20 meq PO DAILY Simvastatin [Zocor] Med 07/16/20 21:00 Ordered 20 mg PO BEDTIME Zolpidem [Ambien] Med 07/16/20 19:29 Ordered 5 mg PO BEDTIME PRN Antiembolic Hose [OM.PC] Per Unit Routine Oth 07/16/20 19:32 Ordered Resuscitation Status Routine Resus Stat 07/16/20 19:29 Ordered Medication Orders Acetaminophen (Tylenol) 650 mg PO Q4H PRN PRN Reason: Pain (Mild 1-3)/fever Albuterol (Proventil Hfa) gm INH QID PRN PRN Reason: Shortness of Breath Albuterol (Proventil Hfa) gm INH Q6H PRN PRN Reason: Wheezing Aspirin (Halfprin) 81 mg PO BEDTIME [facility] Dutasteride (Avodart) 0.5 mg PO DAILY [facility] Enoxaparin Sodium (Lovenox) 40 mg SUBCUT DAILY [facility] Montelukast Sodium (Singulair) 10 mg PO BEDTIME [facility] Non-Formulary Medication (Doxazosin [Cardura]) 8 mg PO BEDTIME [facility] Non-Formulary Medication (Fluticasone/Salmeterol) 1 puff INH BID [facility] Non-Formulary Medication (Potassium Chloride [Potassium Chloride]) 20 meq PO DAILY [facility] Non-Formulary Medication (Simvastatin [Zocor]) 20 mg PO BEDTIME [facility] Ondansetron HCl (Zofran) 4 mg IVPUSH Q4H PRN PRN Reason: Nausea/Vomiting Pantoprazole Sodium (Protonix) 40 mg PO BID [facility] Potassium Chloride (Klor-Con 10) 40 meq PO ONETIME ONE Stop: 07/16/20 19:36 Zolpidem Tartrate (Ambien) 5 mg PO BEDTIME PRN PRN Reason: Sleep Assessment/Plan Comment:: COVID0-19 associated pneumonia - Start decadron daily - Daily COVID labs - Oxygen as needed Dyslipidemia - Resume home meds COPD - Resume home meds BPH - Resume home meds HTN - Resume home antihypertensives GERD - Resume home PPI
[2020-07-16] MEDS ORDERED: Potassium Chloride 10 MEQ Tab.ER PO ONE (19:50)
[2020-07-16] MEDS: Doxazosin 2 MG Tab PO SCH (21:01)
[2020-07-16] MEDS: Montelukast 10 MG Tab PO SCH (21:04)
[2020-07-16] MEDS: Aspirin 81 MG Tab.EC PO SCH (21:04)
[2020-07-16] MEDS: Simvastatin 10 MG Tab PO SCH (21:04)
[2020-07-16] MEDS: Pantoprazole 40 MG Tab.CR PO SCH (21:04)
[2020-07-16] MEDS: Acetaminophen 325 MG Tab PO PRN (21:04)
[2020-07-16] MEDS: Formoterol/Mometasone 200-5 MCG 8.8 GM Inhaler IH SCH (21:08)
[2020-07-16] MEDS: Dexamethasone 4 MG/ML SDV IVPUSH SCH (22:58)
[2020-07-17] MEDS: Acetaminophen 325 MG Tab PO PRN (06:17)
[2020-07-17 07:11] LABS: ANION GAP 12.9 mEq/L (7-13); CHLORIDE,CL 102 mmol/L (98-107); SODIUM,NA 139 mmol/L (136-145)
[2020-07-17] MEDS ORDERED: Non-Formulary Medication 1 Each (Mirabegron [Myrbetriq] 25 MG) PO SCH (09:00)
[2020-07-17] MEDS: Hydrochlorothiazide 25 MG Tab PO SCH (10:03)
[2020-07-17] MEDS: Pantoprazole 40 MG Tab.CR PO SCH ×2 (10:03→22:31)
[2020-07-17] MEDS: Potassium Chloride 10 MEQ Tab.ER PO SCH (10:04)
[2020-07-17] MEDS: Dutasteride 0.5 MG Cap PO SCH (10:04)
[2020-07-17] MEDS: Formoterol/Mometasone 200-5 MCG 8.8 GM Inhaler IH SCH ×2 (10:06→22:32)
[2020-07-17] MEDS: Dexamethasone 4 MG/ML SDV IVPUSH SCH (10:09)
[2020-07-17] MEDS: cefTRIAXone 1 GM in Sodium Chloride 0.9% 50 ML IV SCH (10:23)
[2020-07-17] MEDS: Enoxaparin 40 MG/0.4 ML Syringe SUBCUT SCH (10:29)
[2020-07-17] MEDS: Azithromycin 500 MG in Sodium Chloride 0.9% 250 ML IV SCH (12:50)
--- NOTE | 2020-07-17 13:40 | PCM.PN ---
- General Info Date of Service: 07/17/20 Admission Dx/Problem (Free Text): Admission Diagnosis/Problem Admission Diagnosis/Problem Abnormal electrocardiogram Subjective Update: Patient seen and examined today. Coughing and short of breath with activity. Occasionally hypoxic and requiring oxygen. Functional Status: Reports: Pain Controlled - Review of Systems General: Reports: No Symptoms HEENT: Reports: No Symptoms Pulmonary: Reports: Shortness of Breath, Cough Cardiovascular: Denies: Chest Pain Gastrointestinal: Reports: No Symptoms Genitourinary: Reports: No Symptoms Musculoskeletal: Reports: No Symptoms Skin: Reports: No Symptoms Neurological: Reports: No Symptoms Psychiatric: Reports: No Symptoms - Patient Data Vitals - Most Recent: Last Vital Signs Temp 99.4 F 07/17/20 08:20 Pulse 63 07/17/20 08:20 Resp 18 07/17/20 08:20 BP 109/61 07/17/20 08:20 Pulse Ox 95 07/17/20 08:20 Weight - Most Recent: 162 lb 6.4 oz I&O - Last 24 Hours: Intake & Output 07/16/20 07/17/20 07/17/20 22:59 06:59 14:59 Intake Total 292 Balance 292 Lab Results Last 24 Hours: Laboratory Results - last 24 hr 07/16/20 07/17/20 07/17/20 Range/Units 18:15 06:05 06:05 WBC 3.5 L (5.0-10.0) 10^3/uL RBC 4.23 L (4.6-6.2) 10^6/uL Hgb 13.1 L (14.0-18.0) g/dL Hct 38.6 L (40.0-54.0) % MCV 91.3 (80-100) fL MCH 31.0 (27.0-34.0) pg MCHC 33.9 (33.0-35.0) g/dL Plt Count 146 L (150-450) 10^3/uL Neut % (Auto) 83.0 H (42.2-75.2) % Lymph % (Auto) 10.8 L (20.5-50.1) % Elbert % (Auto) 6.2 (2-8) % Eos % (Auto) 0.0 L (1.0-3.0) % Baso % (Auto) 0.0 (0.0-1.0) % D-Dimer, Quantitative 680 H (0-400) ng/mL Sodium (136-145) mmol/L Potassium (3.5-5.1) mmol/L Chloride (98-107) mmol/L Carbon Dioxide (21-32) mmol/L Anion Gap (7-13) mEq/L BUN (7-18) mg/dL Creatinine (0.70-1.30) mg/dL Est Cr Clr Drug Dosing mL/min Estimated GFR (MDRD) Glucose (74-99) mg/dL Calcium (8.5-10.1) mg/dL Lactate Dehydrogenase (85-227) U/L Troponin I (0.000-0.056) ng/mL SARS CoV-2 RNA Rapid NISH Positive H (NEGATIVE) 07/17/20 Range/Units 06:05 WBC (5.0-10.0) 10^3/uL RBC (4.6-6.2) 10^6/uL Hgb (14.0-18.0) g/dL Hct (40.0-54.0) % MCV (80-100) fL MCH (27.0-34.0) pg MCHC (33.0-35.0) g/dL Plt Count (150-450) 10^3/uL Neut % (Auto) (42.2-75.2) % Lymph % (Auto) (20.5-50.1) % Elbert % (Auto) (2-8) % Eos % (Auto) (1.0-3.0) % Baso % (Auto) (0.0-1.0) % D-Dimer, Quantitative (0-400) ng/mL Sodium 139 (136-145) mmol/L Potassium 3.9 (3.5-5.1) mmol/L Chloride 102 (98-107) mmol/L Carbon Dioxide 28 (21-32) mmol/L Anion Gap 12.9 (7-13) mEq/L BUN 18 (7-18) mg/dL Creatinine 0.93 (0.70-1.30) mg/dL Est Cr Clr Drug Dosing 58.23 mL/min Estimated GFR (MDRD) > 60 Glucose 111 H (74-99) mg/dL Calcium 8.3 L (8.5-10.1) mg/dL Lactate Dehydrogenase 151 (85-227) U/L Troponin I < 0.017 (0.000-0.056) ng/mL SARS CoV-2 RNA Rapid NISH (NEGATIVE) Med Orders - Current: Current Medications Acetaminophen (Tylenol) 650 mg PO Q4H PRN PRN Reason: Pain (Mild 1-3)/fever Last Admin: 07/17/20 06:17 Dose: 650 mg Documented by: Albuterol (Proventil Hfa) 0 gm INH Q6H PRN PRN Reason: Wheezing Aspirin (Halfprin) 81 mg PO BEDTIME [facility] Last Admin: 07/16/20 21:04 Dose: 81 mg Documented by: Dexamethasone (Dexamethasone) 6 mg IVPUSH DAILY [facility] Stop: 07/25/20 09:01 Last Admin: 07/17/20 10:09 Dose: 6 mg Documented by: Docusate Sodium (Colace) 100 mg PO BID PRN PRN Reason: Constipation Doxazosin Mesylate (Cardura) 8 mg PO BEDTIME [facility] Last Admin: 07/16/20 21:01 Dose: 8 mg Documented by: Dutasteride (Avodart) 0.5 mg PO DAILY [facility] Last Admin: 07/17/20 10:04 Dose: 0.5 mg Documented by: Enoxaparin Sodium (Lovenox) 40 mg SUBCUT DAILY [facility] Last Admin: 07/17/20 10:29 Dose: 40 mg Documented by: Hydrochlorothiazide (Hydrochlorothiazide) 25 mg PO DAILY [facility] Last Admin: 07/17/20 10:03 Dose: 25 mg Documented by: Remdesivir 100 mg/ Sodium (Chloride) 230 mls @ 230 mls/hr IV Q24H [facility] Stop: 07/21/20 09:01 Azithromycin 500 mg/ Sodium (Chloride) 250 mls @ 250 mls/hr IV Q24H [facility] Last Admin: 07/17/20 12:50 Dose: 250 mls/hr Documented by: Ceftriaxone Sodium 1 gm/ (Sodium Chloride) 50 mls @ 100 mls/hr IV Q24H [facility] Last Infusion: 07/17/20 11:14 Dose: Infused Documented by: Mometasone Furoate/Formoterol Fumar (Dulera 200-5 Mcg) 2 puff IH BID [facility] Last Admin: 07/17/20 10:06 Dose: 2 puff Documented by: Montelukast Sodium (Singulair) 10 mg PO BEDTIME [facility] Last Admin: 07/16/20 21:04 Dose: 10 mg Documented by: Non-Formulary Medication (Mirabegron [Myrbetriq]) 25 mg PO DAILY [facility] Non-Formulary Medication (Econazole/Niacinamide [Econazole Nit 1%- Niacinamide4%]) 1 applic TOP BID [facility] Ondansetron HCl (Zofran) 4 mg IVPUSH Q4H PRN PRN Reason: Nausea/Vomiting Pantoprazole Sodium (Protonix) 40 mg PO BID [facility] Last Admin: 07/17/20 10:03 Dose: 40 mg Documented by: Potassium Chloride (Klor-Con 10) 20 meq PO DAILY [facility] Last Admin: 07/17/20 10:04 Dose: 20 meq Documented by: Simvastatin (Zocor) 20 mg PO BEDTIME [facility] Last Admin: 07/16/20 21:04 Dose: 20 mg Documented by: Zolpidem Tartrate (Ambien) 5 mg PO BEDTIME PRN PRN Reason: Sleep Discontinued Medications Albuterol (Proventil Hfa) 0 gm INH QID PRN PRN Reason: Shortness of Breath Remdesivir 200 mg/ Sodium (Chloride) 210 mls @ 210 mls/hr IV ONETIME ONE Stop: 07/17/20 09:19 Last Infusion: 07/17/20 12:50 Dose: Infused Documented by: Potassium Chloride (Klor-Con 10) 40 meq PO ONETIME ONE Stop: 07/16/20 19:51 Last Admin: 07/16/20 21:01 Dose: 40 meq Documented by: - Exam Quality Assessment: Supplemental Oxygen General: Alert, Oriented HEENT: Pupils Equal, Pupils Reactive, EOMI, Mucous Membr. Moist/[place] Neck: Supple Lungs: Clear to Auscultation, Normal Respiratory Effort Cardiovascular: Regular Rate, Regular Rhythm GI/Abdominal Exam: Normal Bowel Sounds, Soft, Non-Tender, No Organomegaly, No Distention, No Abnormal Bruit, No Mass, Pelvis Stable Back Exam: Normal Inspection, Full Range of Motion Extremities: Normal Inspection, Normal Range of Motion, Non-Tender, No Pedal Edema, Normal Capillary Refill Skin: Warm, Dry, Intact Neurological: No New Focal Deficit Psy/Mental Status: Alert, Normal Affect, Normal Mood Sepsis Event Note - Evaluation Sepsis Screening Result: No Definite Risk - Focused Exam Vital Signs: Vital Signs Temp Pulse Resp BP Pulse Ox 07/17/20 08:20 99.4 F 63 18 109/61 95 07/17/20 05:00 98.1 F 66 14 102/56 L 89 L - Problem List Review Problem List Initiated/Reviewed/Updated: Yes - My Orders Last 24 Hours: My Active Orders 07/16/20 18:05 Patient Status [ADT] Routine 07/16/20 19:29 Cardiac Monitoring [RC] Oxygen Therapy [RC] PRN Up ad Aditi [RC] ASDIRECTED VTE/DVT Education [RC] PER UNIT ROUTINE Vital Signs [RC] Q4H Acetaminophen [TylenoL] 650 mg PO Q4H PRN Ondansetron [Zofran] 4 mg IVPUSH Q4H PRN Zolpidem [Ambien] 5 mg PO BEDTIME PRN Resuscitation Status Routine 07/16/20 19:32 Antiembolic Hose [OM.PC] Per Unit Routine 07/16/20 19:34 Antiembolic Devices [RC] Albuterol [Proventil HFA] 0 gm INH Q6H PRN 07/16/20 19:35 RT Post Treatment Assessment [RC] Click to Edit RT Pre-Treatment Assessment [RC] Click to Edit 07/16/20 19:36 Incentive Spirometry [RT Incentive Spirometry] [RC] Q1HWA 07/16/20 21:00 Aspirin [Halfprin] 81 mg PO BEDTIME Doxazosin [Cardura] 8 mg PO BEDTIME Mometasone/Formoterol [Dulera 200-5 MCG] 2 puff IH BID Montelukast [Singulair] 10 mg PO BEDTIME Pantoprazole [ProTONIX] 40 mg PO BID Simvastatin [Zocor] 20 mg PO BEDTIME 07/16/20 21:32 Isolation [COMM] Stat 07/16/20 21:45 dexAMETHasone [Dexamethasone] 6 mg IVPUSH DAILY 07/17/20 06:05 PROCALCITONIN [REF] AM 07/17/20 09:00 Dutasteride [Avodart] 0.5 mg PO DAILY Enoxaparin [Lovenox] 40 mg SUBCUT DAILY Mirabegron [Myrbetriq] 25 mg PO DAILY Potassium Chloride [Klor-Con 10] 20 meq PO DAILY hydroCHLOROthiazide 25 mg PO DAILY 07/17/20 09:18 Blood Culture x2 Reflex Set [OM.PC] Stat 07/17/20 09:19 Nurse Communication: Isolation [RC] ASDIRECTED Isolation [COMM] Stat 07/17/20 09:30 cefTRIAXone [Rocephin] 1 gm Sodium Chloride 0.9% [Normal Saline] 50 ml IV Q24H 07/17/20 10:00 Azithromycin [Zithromax] 500 mg Sodium Chloride 0.9% [Normal Saline (AdvBag)] 250 ml IV Q24H 07/17/20 10:10 CULTURE BLOOD [BC] Stat 07/17/20 10:11 CULTURE BLOOD [BC] Stat 07/17/20 12:29 Docusate Sodium [Colace] 100 mg PO BID PRN 07/17/20 21:00 Econazole/Niacinamide [Econazole Nit 1%-Niacinamide4%] 1 applic TOP BID 07/18/20 05:11 BASIC METABOLIC PANEL,BMP [CHEM] AM CBC WITH AUTO DIFF [HEME] AM D-DIMER QUANTITATIVE [COAG] AM LACTATE DEHYDROGENASE,LDH [CHEM] AM 07/18/20 09:00 Remdesivir (Eua) [Remdesivir (EUA)] 100 mg Sodium Chloride 0.9% [Normal Saline] 230 ml IV Q24H 07/19/20 05:11 D-DIMER QUANTITATIVE [COAG] AM LACTATE DEHYDROGENASE,LDH [CHEM] AM - Plan Plan:: COVID0-19 associated pneumonia Acute hypoxic respiratory failure - Continue decadron daily - Daily COVID labs - Oxygen as needed - Start Remdesevir, Ceftriaxone and Azithromycin Dyslipidemia - Resume home meds COPD - Resume home meds BPH - Resume home meds HTN - Resume home antihypertensives GERD - Resume home PPI
[2020-07-17] MEDS: Docusate Sodium 100 MG Cap PO PRN (14:30)
[2020-07-17] MEDS: Doxazosin 2 MG Tab PO SCH (22:27)
[2020-07-17] MEDS: Aspirin 81 MG Tab.EC PO SCH (22:31)
[2020-07-17] MEDS: Simvastatin 10 MG Tab PO SCH (22:31)
[2020-07-17] MEDS: Montelukast 10 MG Tab PO SCH (22:31)
[2020-07-17] MEDS: Sodium Chloride 0.9% 10 ML Syringe FLUSH PRN (22:39)
[2020-07-18 06:49] LABS: ANION GAP 12.5 mEq/L (7-13); CHLORIDE,CL 104 mmol/L (98-107); SODIUM,NA 142 mmol/L (136-145)
[2020-07-18] MEDS ORDERED: Water For Injection, Sterile 20 ML ONE (09:31)
[2020-07-18] MEDS: Pantoprazole 40 MG Tab.CR PO SCH (09:45)
[2020-07-18] MEDS: Dutasteride 0.5 MG Cap PO SCH (09:45)
[2020-07-18] MEDS: Hydrochlorothiazide 25 MG Tab PO SCH (09:45)
[2020-07-18] MEDS: Formoterol/Mometasone 200-5 MCG 8.8 GM Inhaler IH SCH (09:45)
[2020-07-18] MEDS: Potassium Chloride 10 MEQ Tab.ER PO SCH (09:45)
[2020-07-18] MEDS: Dexamethasone 4 MG/ML SDV IVPUSH SCH (09:45)
[2020-07-18] MEDS: Enoxaparin 40 MG/0.4 ML Syringe SUBCUT SCH (09:46)
[2020-07-18] MEDS: Docusate Sodium 100 MG Cap PO PRN (09:52)
--- NOTE | 2020-07-18 10:35 | PCM.DCSUM1 ---
Discharge Summary - Hospital Course Free Text/Narrative:: Patient is an 85 year-old male with a medical history of dyslipidemia, COPD, BPH, HTN, AAA, GERD who presented from clinic with complains of cough and shortness of breath. Vital signs were stable, labs showed potassium of 3.4, however, EKG was unchanged from prior. Troponin x2 was negative. He had no chest pain. He was tested for COVID-19 and found positive. CXR had no acute findings. During hospitalization he was transiently hypoxic. He received Remdesevir, Dexamethasone and empiric antibiotics for pneumonia. His clinical status improved remarkable and he was discharged. Problems addressed during this hospitalization COVID0-19 associated pneumonia Acute hypoxic respiratory failure Dyslipidemia COPD BPH HTN GERD Diagnosis: Stroke: No - Discharge Data Discharge Date: 07/18/20 Discharge Disposition: Home, Self-Care 01 Condition: Good - Referral to Home Health Primary Care Physician: Ash Quiros, [employer] PATHOLOG[employer] - Discharge Plan *PRESCRIPTION DRUG MONITORING PROGRAM REVIEWED*: Not Applicable *COPY OF PRESCRIPTION DRUG MONITORING REPORT IN PATIENT BISMARK: Not Applicable Prescriptions/Med Rec: dexAMETHasone [Dexamethasone] 6 mg PO DAILY #6 tab Levofloxacin 750 mg PO DAILY 3 Days tablet Rivaroxaban [Xarelto] 10 mg PO DAILY #30 tab Home Medications: Home Meds Aspirin [Adult Low Dose Aspirin EC] 81 mg PO BEDTIME 12/17/13 [History] Dutasteride [Avodart] 0.5 mg PO DAILY 12/17/13 [History] Fluticasone/Salmeterol [Advair 250-50] 1 puff INH BID 12/17/13 [History] Montelukast [Singulair] 10 mg PO BEDTIME 12/17/13 [History] Simvastatin [Zocor] 20 mg PO BEDTIME 12/17/13 [History] Doxazosin [Cardura] 8 mg PO BEDTIME 10/15/14 [History] Albuterol [Ventolin HFA] 2 puff INH Q6H PRN 01/02/17 [History] Pantoprazole [ProTONIX] 40 mg PO BID 01/03/18 [History] Albuterol [Take Home: Albuterol 18 GM, 1 INH Pack] 1 puff INH QID PRN 07/16/20 [History] Mirabegron [Myrbetriq] 25 mg PO DAILY 07/16/20 [History] Potassium Chloride 20 meq PO DAILY 07/16/20 [History] hydroCHLOROthiazide [Hydrochlorothiazide] 25 mg PO DAILY 07/16/20 [History] Econazole/Niacinamide [Econazole Nit 1%-Niacinamide4%] 1 applic TOP BID 07/17/20 [History] Levofloxacin 750 mg PO DAILY 3 Days tablet 07/18/20 [Rx] Rivaroxaban [Xarelto] 10 mg PO DAILY #30 tab 07/18/20 [Rx] dexAMETHasone [Dexamethasone] 6 mg PO DAILY #6 tab 07/18/20 [Rx] Patient Handouts: COVID-19 Frequently Asked Questions, COVID-19, Rivaroxaban oral tablets, COVID-19: How to Protect Yourself and Others - CDC, Infection Prevention in the Home, Levofloxacin tablets, Dexamethasone tablets, Prevent the Spread of COVID-19 if You Are Sick - [facility]– [place] - Discharge Summary/Plan Comment DC Time >30 min.: Yes - General Info Date of Service: 07/18/20 Admission Dx/Problem (Free Text: Admission Diagnosis/Problem Admission Diagnosis/Problem Abnormal electrocardiogram Subjective Update: Patient seen and examined today. Coughing and short of breath is much improved. Afebrile and not requiring oxygen. Functional Status: Reports: Ambulating - Review of Systems General: Reports: No Symptoms HEENT: Reports: No Symptoms Pulmonary: Reports: Cough Cardiovascular: Reports: No Symptoms Gastrointestinal: Reports: No Symptoms Genitourinary: Reports: No Symptoms Musculoskeletal: Reports: No Symptoms Skin: Reports: No Symptoms Neurological: Reports: No Symptoms - Patient Data Vitals - Most Recent: Last Vital Signs Temp 98.7 F 07/18/20 07:00 Pulse 68 07/18/20 07:00 Resp 18 07/18/20 07:00 BP 137/75 07/18/20 07:00 Pulse Ox 96 07/18/20 07:00 Weight - Most Recent: 162 lb 6.4 oz I&O - Last 24 hours: Intake & Output 07/17/20 07/18/20 07/18/20 23:59 06:59 14:59 Intake Total Balance Lab Results - Last 24 hrs: Laboratory Results - last 24 hr 07/18/20 07/18/20 07/18/20 Range/Units 05:55 05:55 05:55 WBC 4.1 L (5.0-10.0) 10^3/uL RBC 4.13 L (4.6-6.2) 10^6/uL Hgb 13.0 L (14.0-18.0) g/dL Hct 37.8 L (40.0-54.0) % MCV 91.5 (80-100) fL MCH 31.5 (27.0-34.0) pg MCHC 34.4 (33.0-35.0) g/dL Plt Count 143 L (150-450) 10^3/uL Neut % (Auto) 68.3 (42.2-75.2) % Lymph % (Auto) 19.6 L (20.5-50.1) % [place] % (Auto) 12.1 H (2-8) % Eos % (Auto) 0.0 L (1.0-3.0) % Baso % (Auto) 0.0 (0.0-1.0) % D-Dimer, Quantitative 730 H (0-400) ng/mL Sodium 142 (136-145) mmol/L Potassium 3.5 (3.5-5.1) mmol/L Chloride 104 (98-107) mmol/L Carbon Dioxide 29 (21-32) mmol/L Anion Gap 12.5 (7-13) mEq/L BUN 23 H (7-18) mg/dL Creatinine 0.94 (0.70-1.30) mg/dL Est Cr Clr Drug Dosing 57.61 mL/min Estimated GFR (MDRD) > 60 Glucose 106 H (74-99) mg/dL Calcium 8.0 L (8.5-10.1) mg/dL Lactate Dehydrogenase 158 (85-227) U/L SUSANA Results - Last 24 hrs: Microbiology 07/17/20 10:10 Aerobic Blood Culture - Preliminary Blood - Arm, Right NO GROWTH AFTER 1 DAY Anaerobic Blood Culture - Preliminary NO GROWTH AFTER 1 DAY 07/17/20 10:11 Aerobic Blood Culture - Preliminary Blood - Arm, Left NO GROWTH AFTER 1 DAY Anaerobic Blood Culture - Preliminary NO GROWTH AFTER 1 DAY Med Orders - Current: Current Medications Acetaminophen (Tylenol) 650 mg PO Q4H PRN PRN Reason: Pain (Mild 1-3)/fever Last Admin: 07/17/20 06:17 Dose: 650 mg Documented by: Albuterol (Proventil Hfa) 0 gm INH Q6H PRN PRN Reason: Wheezing Aspirin (Halfprin) 81 mg PO BEDTIME [facility] Last Admin: 07/17/20 22:31 Dose: 81 mg Documented by: Dexamethasone (Dexamethasone) 6 mg IVPUSH DAILY [facility] Stop: 07/25/20 09:01 Last Admin: 07/18/20 09:45 Dose: 6 mg Documented by: Docusate Sodium (Colace) 100 mg PO BID PRN PRN Reason: Constipation Last Admin: 07/18/20 09:52 Dose: 100 mg Documented by: Doxazosin Mesylate (Cardura) 8 mg PO BEDTIME [facility] Last Admin: 07/17/20 22:27 Dose: 8 mg Documented by: Dutasteride (Avodart) 0.5 mg PO DAILY [facility] Last Admin: 07/18/20 09:45 Dose: 0.5 mg Documented by: Enoxaparin Sodium (Lovenox) 40 mg SUBCUT DAILY [facility] Last Admin: 07/18/20 09:46 Dose: 40 mg Documented by: Hydrochlorothiazide (Hydrochlorothiazide) 25 mg PO DAILY [facility] Last Admin: 07/18/20 09:45 Dose: 25 mg Documented by: Remdesivir 100 mg/ Sodium (Chloride) 230 mls @ 230 mls/hr IV Q24H [facility] Stop: 07/21/20 09:01 Last Admin: 07/18/20 09:49 Dose: 230 mls/hr Documented by: Azithromycin 500 mg/ Sodium (Chloride) 250 mls @ 250 mls/hr IV Q24H [facility] Last Infusion: 07/17/20 14:28 Dose: Infused Documented by: Ceftriaxone Sodium 1 gm/ (Sodium Chloride) 50 mls @ 100 mls/hr IV Q24H [facility] Last Infusion: 07/17/20 11:14 Dose: Infused Documented by: Mometasone Furoate/Formoterol Fumar (Dulera 200-5 Mcg) 2 puff IH BID [facility] Last Admin: 07/18/20 09:45 Dose: 2 puff Documented by: Montelukast Sodium (Singulair) 10 mg PO BEDTIME [facility] Last Admin: 07/17/20 22:31 Dose: 10 mg Documented by: Non-Formulary Medication (Mirabegron [Myrbetriq]) 25 mg PO DAILY [facility] Non-Formulary Medication (Econazole/Niacinamide [Econazole Nit 1%- Niacinamide4%]) 1 applic TOP BID [facility] Ondansetron HCl (Zofran) 4 mg IVPUSH Q4H PRN PRN Reason: Nausea/Vomiting Pantoprazole Sodium (Protonix) 40 mg PO BID [facility] Last Admin: 07/18/20 09:45 Dose: 40 mg Documented by: Potassium Chloride (Klor-Con 10) 20 meq PO DAILY [facility] Last Admin: 07/18/20 09:45 Dose: 20 meq Documented by: Simvastatin (Zocor) 20 mg PO BEDTIME [facility] Last Admin: 07/17/20 22:31 Dose: 20 mg Documented by: Sodium Chloride (Saline Flush) 10 ml FLUSH ASDIRECTED PRN PRN Reason: Keep Vein Open Last Admin: 07/17/20 22:39 Dose: 10 ml Documented by: Zolpidem Tartrate (Ambien) 5 mg PO BEDTIME PRN PRN Reason: Sleep Discontinued Medications Albuterol (Proventil Hfa) 0 gm INH QID PRN PRN Reason: Shortness of Breath Remdesivir 200 mg/ Sodium (Chloride) 210 mls @ 210 mls/hr IV ONETIME ONE Stop: 07/17/20 09:19 Last Infusion: 07/17/20 12:50 Dose: Infused Documented by: Sterile Water (Sterile Water For Injection) Confirm Administered Dose 20 mls @ as directed .ROUTE .STK-MED ONE Stop: 07/18/20 09:32 Last Admin: 07/18/20 10:05 Dose: Not Given Documented by: Potassium Chloride (Klor-Con 10) 40 meq PO ONETIME ONE Stop: 07/16/20 19:51 Last Admin: 07/16/20 21:01 Dose: 40 meq Documented by: - Exam Quality Assessment: Denies: Supplemental Oxygen General: Reports: Alert, Oriented HEENT: Reports: Pupils Equal, Pupils Reactive, EOMI, Mucous Membr. Moist/[place] Neck: Reports: Supple Lungs: Reports: Clear to Auscultation, Normal Respiratory Effort Cardiovascular: Reports: Regular Rate, Regular Rhythm GI/Abdominal Exam: Normal Bowel Sounds, Soft, Non-Tender, No Organomegaly, No Distention, No Abnormal Bruit, No Mass, Pelvis Stable Back Exam: Reports: Normal Inspection, Full Range of Motion Extremities: Normal Inspection, Normal Range of Motion, Non-Tender, No Pedal Edema, Normal Capillary Refill Skin: Reports: Warm, Dry, Intact Neurological: Reports: No New Focal Deficit Psy/Mental Status: Reports: Alert, Normal Affect, Normal Mood
[2020-07-18] MEDS: Sodium Chloride 0.9% 10 ML Syringe FLUSH PRN (11:02)
[2020-07-18] MEDS: cefTRIAXone 1 GM in Sodium Chloride 0.9% 50 ML IV SCH (11:03)
[2020-07-18] MEDS: Azithromycin 500 MG in Sodium Chloride 0.9% 250 ML IV SCH (11:39)
[2020-07-18 11:43] VITALS: BP 156/83; PULSE 56
== END 2020-07-18 13:45 | disposition home or self-care (01) ==
LOC: DL.MS 18:05 → EEVIPCON 18:05 → DL.MS 19:50
PROVIDERS: ADMIT Internal Medicine; ATTEND Internal Medicine
DX: U07.1 COVID-19 (principal); J12.89 Other viral pneumonia; J96.01 Acute respiratory failure with hypoxia; E78.5 Hyperlipidemia, unspecified; J44.9 Chronic obstructive pulmonary disease, unspecified; N40.0 Benign prostatic hyperplasia without lower urinary tract symptoms; I10 Essential (primary) hypertension; K21.9 Gastro-esophageal reflux disease without esophagitis; Z79.82 Long term (current) use of aspirin; Z79.899 Other long term (current) drug therapy; Z88.8 Allergy status to other drugs, medicaments and biological substances
CPT/HCPCS: 36415; 80048; 83615; 84145; 84484; 85025; 85379; 87040; 96365; 96366; 96367; 96372; 96375; 96376; A9270; G0378; G0379; J0456; J0696; J1100; J1650; J7050; U0002

== ENCOUNTER 2023-07-02 06:52 | Day surgery (SDC) | payer MEDICARE, BC ==
[2023-07-02] MEDS ORDERED: Midazolam 1 MG/ML 2 ML SDV ONE (06:55)
[2023-07-02] MEDS ORDERED: fentaNYL 100 MCG/2 ML SDV ONE (06:56)
[2023-07-02] MEDS: Dextrose 5%-0.45% NaCl 1,000 ML IV SCH (07:14)
[2023-07-02] MEDS: fentaNYL 100 MCG/2 ML SDV IV ONE (07:22)
[2023-07-02] MEDS: Midazolam 1 MG/ML 2 ML SDV IV ONE (07:23)
[2023-07-02 09:49] VITALS: BP 107/77; PULSE 67
== END 2023-07-02 09:50 | disposition home or self-care (01) ==
LOC: DL.ENDO 06:52
PROVIDERS: ATTEND Internal Medicine Gastroenterology
DX: K22.2 Esophageal obstruction (principal); K31.89 Other diseases of stomach and duodenum; K44.9 Diaphragmatic hernia without obstruction or gangrene; K22.89 Other specified disease of esophagus; K21.9 Gastro-esophageal reflux disease without esophagitis; N40.0 Benign prostatic hyperplasia without lower urinary tract symptoms; J44.9 Chronic obstructive pulmonary disease, unspecified; I10 Essential (primary) hypertension; E78.5 Hyperlipidemia, unspecified; Z86.16 Personal history of COVID-19; Z87.891 Personal history of nicotine dependence; Z98.890 Other specified postprocedural states; Z88.1 Allergy status to other antibiotic agents; Z88.8 Allergy status to other drugs, medicaments and biological substances; Z95.820 Peripheral vascular angioplasty status with implants and grafts
CPT/HCPCS: 43239; 43450; 87077; J2250; J3010; J7042; 88305

== ENCOUNTER 2025-01-07 12:02 | Emergency (ER) | payer MEDICARE, BC ==
[2025-01-07] MEDS ORDERED: Sodium Chloride 0.9% 10 ML Syringe FLUSH PRN (12:29)
[2025-01-07] MEDS ORDERED: Sodium Chloride 0.9% 1,000 ML IV ONE (12:40)
[2025-01-07 12:46] LABS: BASOPHILS PERCENT AUTO 0.1 % (0.0-1.0); EOSINOPHILS PERCENT AUTO 1.6 % (1.0-3.0); HEMATOCRIT 39.4 % (40.0-54.0); HEMOGLOBIN 13.3 g/dL (14.0-18.0); MEAN CORPUSCULAR HEMOGLOBIN 30.5 pg (27.0-34.0); MEAN CORPUSCULAR HGB CONC 33.8 g/dL (33.0-35.0); MEAN CORPUSCULAR VOLUME 90.4 fL (80-100); MONOCYTES PERCENT AUTO 11.8 % (2-8); NEUTROPHILS PERCENT AUTO 73.5 % (42.2-75.2); PLATELET COUNT,PLT 165 10^3/uL (150-450); RED BLOOD CELL COUNT 4.36 10^6/uL (4.6-6.2); WHITE BLOOD CELL COUNT,WBC 6.9 10^3/uL (5.0-10.0)
[2025-01-07] MEDS: Sodium Chloride 0.9% 500 ML IV ONE (12:54)
[2025-01-07 13:09] LABS: A/G RATIO 0.91; ALBUMIN 3.2 g/dL (3.4-5.0); ANION GAP 13.5 mEq/L (7-13); BILIRUBIN TOTAL 0.5 mg/dL (0.2-1.0); BUN/CREATININE RATIO 21.7 (No establ ref range); CALCIUM 8.9 mg/dL (8.5-10.1); CREATININE 1.15 mg/dL (0.70-1.30); EST CRCL DRUG DOSING (CG) 42.31 mL/min; MAGNESIUM 1.8 mg/dL (1.8-2.4); POTASSIUM,K 3.5 mmol/L (3.5-5.1); PROTEIN TOTAL,TP 6.7 g/dL (6.4-8.2)
[2025-01-07 14:56] VITALS: BP 142/81; PULSE 77
== END 2025-01-07 14:56 | disposition home or self-care (01) ==
LOC: DL.ED 12:02
DX: I95.9 Hypotension, unspecified (principal); I10 Essential (primary) hypertension; M19.90 Unspecified osteoarthritis, unspecified site; Z88.8 Allergy status to other drugs, medicaments and biological substances; Z79.82 Long term (current) use of aspirin; Z79.899 Other long term (current) drug therapy
CPT/HCPCS: 36415; 80053; 83735; 83880; 84484; 85025; 93005; 96360; 96361; 99285; J7030; 93010; 99284

== ENCOUNTER 2025-07-05 12:26 | Emergency (ER) | payer MEDICARE, BC ==
[2025-07-05] MEDS ORDERED: Sodium Chloride 0.9% 10 ML Syringe FLUSH PRN (12:54)
[2025-07-05] MEDS: methylPREDNISolone Sodium Succinate 125 MG/2 ML SDV IVPUSH ONE (13:00)
[2025-07-05] MEDS: Metoprolol Tartrate 5 MG/5 ML SDV IVPUSH ONE (13:00)
[2025-07-05 13:06] LABS: BASOPHILS PERCENT AUTO 0.1 % (0.0-1.0); EOSINOPHILS PERCENT AUTO 0.2 % (1.0-3.0); LYMPHOCYTES PERCENT AUTO 3.1 % (20.5-50.1); MONOCYTES PERCENT AUTO 2.4 % (2-8); NEUTROPHILS PERCENT AUTO 94.2 % (42.2-75.2); PLATELET COUNT,PLT 166 10^3/uL (150-450); RED BLOOD CELL COUNT 5.28 10^6/uL (4.6-6.2); WHITE BLOOD CELL COUNT,WBC 12.9 10^3/uL (5.0-10.0)
[2025-07-05 13:21] LABS: INR 1.0 (0.9-1.2)
[2025-07-05 13:30] LABS: A/G RATIO 0.9; ALANINE AMINOTRANSFERASE,ALT 18.0 U/L (16-63); ASPARTATE AMNIOTRANSFERASE,AST 16.0 U/L (15-37); BILIRUBIN TOTAL 1.2 mg/dL (0.2-1.0); BLOOD UREA NITROGEN,BUN 28.0 mg/dL (7-18); CARBON DIOXIDE,CO2 31.0 mmol/L (21-32); CHLORIDE,CL 103.0 mmol/L (98-107); CREATININE 1.01 mg/dL (0.70-1.30); EST CRCL DRUG DOSING (CG) 47.27 mL/min; GLUCOSE RANDOM 120.0 mg/dL (70-99); POTASSIUM,K 3.6 mmol/L (3.5-5.1); PROTEIN TOTAL,TP 7.3 g/dL (6.4-8.2); SODIUM,NA 144.0 mmol/L (136-145)
[2025-07-05 13:31] LABS: B-TYPE NATRIURETIC PEPTIDE,BNP 172.0 pg/ml (0-100); ESTIMATED GFR 72.0 mL/min (>=60)
[2025-07-05 15:18] VITALS: BP 82/63; PULSE 93
== END 2025-07-05 14:35 ==
LOC: DL.ED 12:26
DX: J44.0 Chronic obstructive pulmonary disease with (acute) lower respiratory infection (principal); J18.9 Pneumonia, unspecified organism; J44.1 Chronic obstructive pulmonary disease with (acute) exacerbation; J96.01 Acute respiratory failure with hypoxia; R79.89 Other specified abnormal findings of blood chemistry; R79.1 Abnormal coagulation profile; I48.91 Unspecified atrial fibrillation; I50.9 Heart failure, unspecified; I11.0 Hypertensive heart disease with heart failure; E78.5 Hyperlipidemia, unspecified; K21.9 Gastro-esophageal reflux disease without esophagitis; Z79.899 Other long term (current) drug therapy; Z88.6 Allergy status to analgesic agent; Z88.1 Allergy status to other antibiotic agents; Z79.82 Long term (current) use of aspirin; Z79.52 Long term (current) use of systemic steroids
CPT/HCPCS: 36415; 71046; 80053; 83605; 83735; 83880; 84484; 85025; 85379; 85610; 87040; 87077; 87186; 87428-QW; 93005; 93010; 96365; 96375; 99285; 99285-25; A9270-GY; J0456; J0696; J2919; J3490; J7030; J7040; J7050

== ENCOUNTER 2025-07-11 10:21 | Emergency (ER) | payer MEDICARE, BC ==
[2025-07-11 11:24] VITALS: BP 153/109; PULSE 85
== END 2025-07-11 11:10 | disposition home or self-care (01) ==
LOC: DL.ED 10:21
DX: J44.9 Chronic obstructive pulmonary disease, unspecified (principal); I11.0 Hypertensive heart disease with heart failure; I50.9 Heart failure, unspecified; I48.91 Unspecified atrial fibrillation; Z79.82 Long term (current) use of aspirin; Z79.899 Other long term (current) drug therapy; Z88.6 Allergy status to analgesic agent; Z88.8 Allergy status to other drugs, medicaments and biological substances
CPT/HCPCS: 99283; 99284

== ENCOUNTER 2025-08-20 18:17 | Emergency (ER) | payer MEDICARE, BC ==
[2025-08-20] MEDS ORDERED: Sodium Chloride 0.9% 10 ML Syringe FLUSH PRN (18:31)
[2025-08-20] MEDS: Dexamethasone 4 MG/ML SDV IVPUSH ONE (18:38)
[2025-08-20 18:39] LABS: BASOPHILS PERCENT AUTO 0.3 % (0.0-1.0); EOSINOPHILS PERCENT AUTO 6.2 % (1.0-3.0); LYMPHOCYTES PERCENT AUTO 14.4 % (20.5-50.1); MONOCYTES PERCENT AUTO 10.9 % (2-8); NEUTROPHILS PERCENT AUTO 68.2 % (42.2-75.2); PLATELET COUNT,PLT 162 10^3/uL (150-450); RED BLOOD CELL COUNT 4.68 10^6/uL (4.6-6.2); WHITE BLOOD CELL COUNT,WBC 10.7 10^3/uL (5.0-10.0)
[2025-08-20] MEDS: Magnesium Sulfate 2 GM/50 mL 2 GM in Premix Bag 1 BAG IV ONE (18:39)
[2025-08-20 19:03] LABS: A/G RATIO 1.0; ALANINE AMINOTRANSFERASE,ALT 26 U/L (16-63); ASPARTATE AMNIOTRANSFERASE,AST 17 U/L (15-37); B-TYPE NATRIURETIC PEPTIDE,BNP 224 pg/ml (0-100); BILIRUBIN TOTAL 0.6 mg/dL (0.2-1.0); BLOOD UREA NITROGEN,BUN 24 mg/dL (7-18); CARBON DIOXIDE,CO2 33 mmol/L (21-32); CHLORIDE,CL 102 mmol/L (98-107); CREATININE 1.36 mg/dL (0.70-1.30); ESTIMATED GFR 50 mL/min (>=60); GLUCOSE RANDOM 96 mg/dL (70-99); LACTIC ACID 1.2 mmol/L (0.4-2.0); POTASSIUM,K 4.4 mmol/L (3.5-5.1); PROTEIN TOTAL,TP 7.5 g/dL (6.4-8.2); SODIUM,NA 143 mmol/L (136-145)
[2025-08-20 20:21] VITALS: BP 151/89; PULSE 92
== END 2025-08-20 20:09 | disposition home or self-care (01) ==
LOC: DL.ED 18:17
DX: J44.1 Chronic obstructive pulmonary disease with (acute) exacerbation (principal); K21.9 Gastro-esophageal reflux disease without esophagitis; I48.91 Unspecified atrial fibrillation; I11.0 Hypertensive heart disease with heart failure; I50.9 Heart failure, unspecified; Z88.1 Allergy status to other antibiotic agents; Z88.8 Allergy status to other drugs, medicaments and biological substances; Z79.82 Long term (current) use of aspirin; Z79.899 Other long term (current) drug therapy
CPT/HCPCS: 36415; 71046; 80053; 83605; 83735; 83880; 84484; 85025; 86140; 87040; 93005; 96365; 96375; 99285; A9270; J1100; J3475; J7040